=== PATIENT | male | born 1960 | race Caucasian/White ===

== ENCOUNTER 2017-07-15 19:06 | Emergency (ER) | payer MEDICAID ==
--- NOTE | 2017-07-15 19:20 | EDM.PDOC ---
ED HPI GENERAL MEDICAL PROBLEM - General Chief Complaint: Chest Pain Stated Complaint: BP HIGH CHEST PAIN Time Seen by Provider: 07/15/17 19:15 Source of Information: Reports: Patient History Limitations: Reports: No Limitations - History of Present Illness INITIAL COMMENTS - FREE TEXT/NARRATIVE: 57-year-old male who has had intermittent chest pain for months, seems to be worse with activity and today he had an episode of chest pain that lasted 5 hours since is still feeling a slight chest pressure. His blood pressures 180/ 100. No radiation of pain to the jaw or arms. He has never had any kind of cardiac evaluation, he was thinking of setting up a stress test with his primary doctor in the near future. He took a full dose aspirin earlier today. Onset: Unknown/Unsure Location: Reports: Chest Quality: Reports: Pressure Severity: Moderate Chest Pain Score (Numeric/FACES): 3 - Related Data Allergies Allergy/AdvReac Type Severity Reaction Status Date / Time No Known Allergies Allergy Verified 07/15/17 19:15 Home Meds: Home Meds Aspirin 325 mg PO DAILY 07/26/15 [History] Albuterol [Ventolin HFA] 2 puff INH ASDIRECTED 07/13/16 [History] Past Medical History HEENT History: Reports: Impaired Vision Cardiovascular History: Reports: Hypertension Respiratory History: Reports: COPD Other Gastrointestinal History: abd pain for 2 weeks pt guarding L lower abd area Musculoskeletal History: Reports: Back Pain, Chronic - Past Surgical History HEENT Surgical History: Reports: Tonsillectomy GI Surgical History: Reports: Appendectomy Social & Family History - Tobacco Use Smoking Status *Q: Current Every Day Smoker Years of Tobacco use: 40 Packs/Tins Daily: 0.5 - Alcohol Use Days Per Week of Alcohol Use: 3 Number of Drinks Per Day: 3 Total Drinks Per Week: 9 - Recreational Drug Use Recreational Drug Use: No ED ROS GENERAL - Review of Systems Review Of Systems: See Below Constitutional: Denies: Fever, Chills, Malaise HEENT: Reports: No Symptoms Respiratory: Denies: Shortness of Breath, Cough Cardiovascular: Reports: Chest Pain (Pressure sensation central to left chest) GI/Abdominal: Denies: Abdominal Pain, Nausea, Vomiting Skin: Reports: No Symptoms Neurological: Reports: No Symptoms Psychiatric: Reports: No Symptoms ED EXAM, GENERAL - Physical Exam Exam: See Below Exam Limited By: No Limitations General Appearance: Alert, No Apparent Distress Neck: Normal Inspection Respiratory/Chest: No Respiratory Distress, Lungs Clear Cardiovascular: Regular Rate, Rhythm GI/Abdominal: Soft, Non-Tender Extremities: Normal Inspection Neurological: Alert, Oriented Psychiatric: Normal Affect, Normal Mood Skin Exam: Warm, Dry EKG INTERPRETATION Rhythm: NSR QRS: RBBB Course - Vital Signs Last Recorded V/S: Last Vital Signs Temp 96.7 F 07/15/17 19:13 Pulse 84 07/15/17 21:30 Resp 14 07/15/17 21:30 BP 156/100 H 07/15/17 21:30 Pulse Ox 95 07/15/17 21:30 - Orders/Labs/Meds Orders: Active Orders 24 hr Category Date Time Status EKG Documentation Completion [RC] ASDIRECTED Care 07/15/17 19:20 Active EKG 12 Lead [EK] Routine Ther 07/15/17 19:20 Ordered Labs: Laboratory Tests 07/15/17 07/15/17 07/15/17 Range/Units 19:30 19:30 19:30 WBC 10.7 (4.5-11.0) K/uL RBC 5.16 (4.30-5.90) M/uL Hgb 17.2 H (12.0-15.0) g/dL Hct 49.3 (40.0-54.0) % MCV 96 (80-98) fL MCH 33 H (27-31) pg MCHC 35 (32-36) % Plt Count 206 (150-400) K/uL Neut % (Auto) 58 (36-66) % Lymph % (Auto) 26 (24-44) % Gillespie % (Auto) 14 H (2-6) % Eos % (Auto) 1 L (2-4) % Baso % (Auto) 0 (0-1) % Sodium 135 L (140-148) mmol/L Potassium 4.0 (3.6-5.2) mmol/L Chloride 99 L (100-108) mmol/L Carbon Dioxide 25 (21-32) mmol/L Anion Gap 15.0 H (5.0-14.0) mmol/L BUN 7 (7-18) mg/dL Creatinine 0.9 (0.8-1.3) mg/dL Est Cr Clr Drug Dosing 72.88 mL/min Estimated GFR (MDRD) > 60 (>60) Glucose 104 (74-106) mg/dL Calcium 9.1 (8.5-10.1) mg/dL Troponin I < 0.017 (0.000-0.056) ng/mL - Re-Assessments/Exams Free Text/Narrative Re-Assessment/Exam: 07/15/17 21:15 EKG showed a right bundle rae block but no acute ST changes. I do not have a previous EKG for comparison. Patient's symptoms resolved shortly after coming in the emergency room. He was initially hypertensive but normalized over the course of an hour. CBC, BMP and troponin were obtained and were reassuring, troponin was 0. I discussed his symptoms with cardiology to see if there were significant enough symptoms to get him a study without further evaluation but a Cardiolite stress was recommended. This was set up for tomorrow, the patient was discharged symptom-free. I did give him some fresh nitroglycerin to use if pain recurs and told him to return if concerns. Departure - Departure Time of Disposition: 21:57 Disposition: Home, Self-Care 01 Condition: Good Clinical Impression: Stable angina - Discharge Information Instructions: Angina Pectoris, [id number] Referrals: Jason Chamberlain MD [Primary Care Provider] - Forms: ED Department Discharge Care Plan Goals: Use nitroglycerin for chest pain if it recurs, return to the emergency room pain is persistent or worsening. You will have a stress test tomorrow as discussed. - My Orders Last 24 Hours: My Active Orders 07/15/17 19:20 EKG Documentation Completion [RC] ASDIRECTED EKG 12 Lead [EK] Routine - Assessment/Plan Last 24 Hours: My Active Orders 07/15/17 19:20 EKG Documentation Completion [RC] ASDIRECTED EKG 12 Lead [EK] Routine
[2017-07-15 21:50] VITALS: BP 156/100
== END 2017-07-15 21:50 | disposition home or self-care (01) ==
LOC: JP.ED 19:06
DX: I20.8 Other forms of angina pectoris (principal); I10 Essential (primary) hypertension; F17.210 Nicotine dependence, cigarettes, uncomplicated; J44.9 Chronic obstructive pulmonary disease, unspecified; Z79.82 Long term (current) use of aspirin
CPT/HCPCS: 36415; 80048; 84484; 85025; 93005; 99285-25

== ENCOUNTER 2019-04-27 04:44 | Emergency (ER) | payer SELFPAY ==
[2019-04-27 04:56] VITALS: BP 154/97
[2019-04-27] MEDS: Ketorolac 60 MG/2 ML SDV IM ONE (05:15)
--- NOTE | 2019-04-27 05:15 | EDM.PDOC ---
ED HPI GENERAL MEDICAL PROBLEM - General Chief Complaint: ENT Problem Stated Complaint: TOOTHACHE Time Seen by Provider: 04/27/19 05:10 Source of Information: Reports: Patient History Limitations: Reports: No Limitations - History of Present Illness INITIAL COMMENTS - FREE TEXT/NARRATIVE: pt has a painful rt molar--lower. This has been a problem for a couple of days. Onset: Gradual, Other (last 2 days. ) Duration: Hour(s): Location: Reports: Face Associated Symptoms: Reports: No Other Symptoms Treatments [employer] REPRESENTATIVE: Reports: Other Medication(s) Other Treatments [employer]PRESENT[employer]IVE: Tylenol #3 Right Upper Jaw Pain Score (Numeric/FACES): 6 - Related Data Allergies Allergy/AdvReac Type Severity Reaction Status Date / Time No Known Allergies Allergy Verified 07/16/17 11:53 Home Meds: Home Meds Aspirin 325 mg PO DAILY 07/26/15 [History] Albuterol [Ventolin HFA] 2 puff INH ASDIRECTED 07/13/16 [History] Acetaminophen with Codeine [Tylenol with Codeine #3 Tablet] 1 tab PO ASDIRECTED PRN 07/11/18 [History] Past Medical History HEENT History: Reports: Impaired Vision Cardiovascular History: Reports: Hypertension Respiratory History: Reports: COPD Other Gastrointestinal History: abd pain for 2 weeks pt guarding L lower abd area Musculoskeletal History: Reports: Back Pain, Chronic - Past Surgical History HEENT Surgical History: Reports: Tonsillectomy GI Surgical History: Reports: Appendectomy Social & Family History - Tobacco Use Smoking Status *Q: Current Every Day Smoker Years of Tobacco use: 45 Packs/Tins Daily: 2 - Caffeine Use Caffeine Use: Reports: Coffee, Soda Caffeine Use Comment: 3-4 cups of coffee per day, daily soda - Alcohol Use Days Per Week of Alcohol Use: 3 Number of Drinks Per Day: 4 Total Drinks Per Week: 12 - Recreational Drug Use Recreational Drug Use: No ED ROS ENT - Review of Systems Review Of Systems: See Below Constitutional: Reports: No Symptoms HEENT: Reports: Dental Pain Respiratory: Reports: No Symptoms Cardiovascular: Reports: No Symptoms Endocrine: Reports: No Symptoms GI/Abdominal: Reports: No Symptoms : Reports: No Symptoms Musculoskeletal: Reports: No Symptoms ED EXAM, ENT - Physical Exam Exam: See Below Text/Narrative:: rt lower molar is tender and the gum is swollen. Exam Limited By: No Limitations General Appearance: Alert, Anxious, Moderate Distress Ears: Normal TMs Nose: Normal Inspection Mouth/Throat: Dental Pain, Gum Swelling Head: Atraumatic Neck: Lymphadenopathy (R) Respiratory/Chest: No Respiratory Distress Course - Vital Signs Last Recorded V/S: Last Vital Signs Temp 35.5 C 04/27/19 04:54 Pulse 90 04/27/19 04:54 Resp 16 04/27/19 04:54 BP 154/97 H 04/27/19 04:54 Pulse Ox 97 04/27/19 04:54 - Orders/Labs/Meds Orders: Active Orders 24 hr Category Date Time Status Ketorolac [Toradol] Med 04/27/19 05:09 Once 60 mg IM ONETIME ONE - Re-Assessments/Exams Free Text/Narrative Re-Assessment/Exam: 04/27/19 05:12 pt was given torodol 60 mg im. Departure - Departure Time of Disposition: 05:13 Disposition: Home, Self-Care 01 Condition: Fair Clinical Impression: Infected tooth - Discharge Information Referrals: PCP,None [Primary Care Provider] - Care Plan Goals: amoxicillin 500mg tid, tramodol 50 mg q6h prn for pain, dental referal - My Orders Last 24 Hours: My Active Orders 04/27/19 05:09 Ketorolac [Toradol] 60 mg IM ONETIME ONE - Assessment/Plan Last 24 Hours: My Active Orders 04/27/19 05:09 Ketorolac [Toradol] 60 mg IM ONETIME ONE
== END 2019-04-27 05:29 | disposition home or self-care (01) ==
LOC: JP.ED 04:44
DX: K04.7 Periapical abscess without sinus (principal); F17.210 Nicotine dependence, cigarettes, uncomplicated; I10 Essential (primary) hypertension; J44.9 Chronic obstructive pulmonary disease, unspecified; Z79.82 Long term (current) use of aspirin
CPT/HCPCS: 96372; 99282; J1885

== ENCOUNTER 2019-10-20 20:38 | Emergency (ER) | payer SELFPAY ==
[2019-10-20] MEDS ORDERED: Albuterol/Ipratropium 3.0-0.5 MG/3 ML Neb Soln NEB ONE (21:24)
[2019-10-20 21:52] VITALS: BP 163/109; PULSE 97
--- NOTE | 2019-10-20 21:56 | EDM.PDOC ---
ED HPI GENERAL MEDICAL PROBLEM - General Chief Complaint: Respiratory Problem Stated Complaint: SOB Time Seen by Provider: 10/20/19 21:30 Source of Information: Reports: Patient History Limitations: Reports: No Limitations - History of Present Illness INITIAL COMMENTS - FREE TEXT/NARRATIVE: 59-year-old male, heavy smoker and history of reactive airway disease has had a cough, shortness of breath and sore throat for the past 3 days. Tonight he was on his way to work and became so short of breath that he stopped in the emergency room to be checked. No significant fevers or chills, cough is nonproductive. Throat is getting so sore that he can hardly drink cold water. He continues to smoke up to 2 packs a day. He has been using an inhaler that does not seem to be helping. Onset: Gradual Duration: Day(s): (3 to 4 days) Associated Symptoms: Reports: Cough, Shortness of Breath, Other (Sore throat). Denies: Fever/Chills, Loss of Appetite - Related Data Allergies Allergy/AdvReac Type Severity Reaction Status Date / Time No Known Allergies Allergy Verified 10/20/19 21:35 Home Meds: Home Meds Aspirin 325 mg PO DAILY 07/26/15 [History] Albuterol [Ventolin HFA] 2 puff INH ASDIRECTED 07/13/16 [History] Acetaminophen with Codeine [Tylenol with Codeine #3 Tablet] 1 tab PO ASDIRECTED PRN 07/11/18 [History] Past Medical History HEENT History: Reports: Impaired Vision Cardiovascular History: Reports: Hypertension Respiratory History: Reports: COPD Gastrointestinal History: Reports: Other (See Below) Other Gastrointestinal History: abd pain for 2 weeks pt guarding L lower abd area Musculoskeletal History: Reports: Back Pain, Chronic, Other (See Below) Other Musculoskeletal History: Degenerative Disc Disease Hematologic History: Reports: Anticoagulation Therapy Dermatologic History: Reports: Other (See Below) Other Dermatologic History: dry skin - Infectious Disease History Infectious Disease History: Reports: Chicken Pox, Shingles - Past Surgical History HEENT Surgical History: Reports: Tonsillectomy GI Surgical History: Reports: Appendectomy Social & Family History - Tobacco Use Smoking Status *Q: Current Every Day Smoker Years of Tobacco use: 40 Packs/Tins Daily: 1.5 - Caffeine Use Caffeine Use: Reports: Coffee, Soda Caffeine Use Comment: 3-4 cups of coffee per day, daily soda - Recreational Drug Use Recreational Drug Use: No ED ROS GENERAL - Review of Systems Review Of Systems: See Below Constitutional: Reports: Malaise. Denies: Fever HEENT: Reports: Throat Pain Respiratory: Reports: Shortness of Breath, Wheezing, Cough. Denies: Sputum Cardiovascular: Denies: Chest Pain GI/Abdominal: Denies: Vomiting Skin: Reports: No Symptoms Neurological: Denies: Headache Psychiatric: Reports: No Symptoms ED EXAM, GENERAL - Physical Exam Exam: See Below Exam Limited By: No Limitations General Appearance: Alert, No Apparent Distress (No distress but looks uncomfortable) Throat/Mouth: Other (Significant diffuse pharyngeal erythema, no exudate or lesions) Head: Atraumatic Neck: No: Lymphadenopathy (R), Lymphadenopathy (L) Respiratory/Chest: No Respiratory Distress, Wheezing (Diffuse inspiratory and expiratory wheezes) Cardiovascular: Regular Rate, Rhythm Neurological: Alert, Oriented Psychiatric: Normal Affect, Normal Mood Skin Exam: Warm, Dry Course - Vital Signs Last Recorded V/S: Last Vital Signs Temp 97.5 F 10/20/19 21:13 Pulse 97 10/20/19 21:52 Resp 21 H 10/20/19 21:52 BP 163/109 H 10/20/19 21:52 Pulse Ox 100 10/20/19 21:52 - Orders/Labs/Meds Orders: Active Orders 24 hr Category Date Time Status RT Aerosol Therapy [RC] ASDIRECTED Care 10/20/19 21:24 Active CULTURE STREP A CONFIRMATION [] Routine Lab 10/20/19 21:23 Results STREP SCRN A RAPID W CULT CONF [] Routine Lab 10/20/19 21:23 Results Meds: Medications Discontinued Medications Generic Name Dose Route Start Last Admin Trade Name Freq PRN Reason Stop Dose Admin Albuterol/Ipratropium 3 ml 10/20/19 21:24 10/20/19 21:34 Duoneb 3.0-0.5 Mg/3 Ml NEB 10/20/19 21:25 3 ml ONETIME ONE Administration - Re-Assessments/Exams Free Text/Narrative Re-Assessment/Exam: 10/20/19 22:15 Patient was given a DuoNeb with marked subjective and objective improvement. His wheezing was almost gone. I then looked at his inhaler to see if it was empty, it is actually an off brand he bought in [place] which may not be very effective. He was discharged on 60 mg of prednisone daily for 5 days and a new albuterol inhaler, encouraged to stop smoking. A rapid strep was obtained which was negative, influenza antigens also were negative. He will return if not continuing to improve despite treatment. Departure - Departure Time of Disposition: 22:06 Disposition: Home, Self-Care 01 Clinical Impression: Acute viral bronchitis Reactive airway disease Qualifiers: Asthma severity: moderate Asthma persistence: persistent Asthma complication type: uncomplicated Qualified Code(s): J45.40 - Moderate persistent asthma, uncomplicated - Discharge Information Instructions: Viral Respiratory Infection, [id number] Referrals: Jason Chamberlain MD [Primary Care Provider] - Forms: ED Department Discharge Care Plan Goals: Take 6 pills of prednisone with food daily for 5 consecutive days as discussed. Use your inhaler every 2-3 hours if needed, and return anytime if worsening despite treatment. Decrease smoking if possible. Sepsis Event Note - Evaluation Sepsis Screening Result: No Definite Risk - Focused Exam Vital Signs: Vital Signs Temp Pulse Resp BP Pulse Ox 10/20/19 21:52 97 21 H 163/109 H 100 10/20/19 21:13 97.5 F 85 17 192/102 H 96 10/20/19 21:04 97.5 F 85 17 192/102 H 96 Date Exam was Performed: 10/20/19 Time Exam was Performed: 22:12 - My Orders Last 24 Hours: My Active Orders 10/20/19 21:23 CULTURE STREP A CONFIRMATION [RM] Routine STREP SCRN A RAPID W CULT CONF [RM] Routine 10/20/19 21:24 RT Aerosol Therapy [RC] ASDIRECTED - Assessment/Plan Last 24 Hours: My Active Orders 10/20/19 21:23 CULTURE STREP A CONFIRMATION [RM] Routine STREP SCRN A RAPID W CULT CONF [RM] Routine 10/20/19 21:24 RT Aerosol Therapy [RC] ASDIRECTED
== END 2019-10-20 22:06 | disposition home or self-care (01) ==
LOC: JP.ED 20:38
DX: J45.40 Moderate persistent asthma, uncomplicated (principal); J20.8 Acute bronchitis due to other specified organisms; B97.89 Other viral agents as the cause of diseases classified elsewhere; I10 Essential (primary) hypertension; F17.210 Nicotine dependence, cigarettes, uncomplicated; Z79.01 Long term (current) use of anticoagulants; Z79.82 Long term (current) use of aspirin
CPT/HCPCS: 87081; 87804; 87804-59; 87880-QW; 94640; 99284; 99285-25; J7620-GY

== ENCOUNTER 2020-08-25 21:46 | Emergency (ER) | payer SELFPAY ==
[2020-08-25 21:59] VITALS: BP 170/82; PULSE 85
[2020-08-25] MEDS ORDERED: Sodium Chloride 0.9% 10 ML Syringe FLUSH PRN (22:22)
[2020-08-25] MEDS ORDERED: HYDROmorphone 0.5 MG/0.5 ML Syringe IVPUSH ONE (22:22)
--- NOTE | 2020-08-25 22:31 | EDM.PDOC ---
ED HPI GENERAL MEDICAL PROBLEM - General Chief Complaint: Back Pain or Injury Stated Complaint: MUSCLE CRAMPS IN BACK AND SIDE Time Seen by Provider: 08/25/20 22:15 Source of Information: Reports: Patient, Old Records, RN History Limitations: Reports: No Limitations - History of Present Illness INITIAL COMMENTS - FREE TEXT/NARRATIVE: 60 yo male here with R sided abdominal pain that began about 4 1/2 hrs ago. Pain is constant. Pain is worse with coughing. No fever or nausea. Has a hx of appendectomy, but not cholecystectomy. No self tx. No injury. No urinary sx's such as dysuria, frequency or retention. 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) - Related Data Allergies Allergy/AdvReac Type Severity Reaction Status Date / Time No Known Allergies Allergy Verified 08/25/20 22:00 Home Meds: Home Meds Aspirin 325 mg PO DAILY 07/26/15 [History] Albuterol [Ventolin HFA] 2 puff INH ASDIRECTED 07/13/16 [History] Acetaminophen with Codeine [Tylenol with Codeine #3 Tablet] 1 tab PO ASDIRECTED PRN 07/11/18 [History] Tamsulosin [Tamsulosin 24 Hr] 0.4 mg PO BEDTIME #30 cap.er 08/26/20 [Rx] Past Medical History HEENT History: Reports: Impaired Vision Cardiovascular History: Reports: Hypertension Respiratory History: Reports: COPD, SOB Gastrointestinal History: Reports: Chronic Constipation Other Gastrointestinal History: abd pain for 2 weeks pt guarding L lower abd area Genitourinary History: Reports: Retention, Urinary Musculoskeletal History: Reports: Back Pain, Chronic, Other (See Below) Other Musculoskeletal History: Degenerative Disc Disease Hematologic History: Reports: Anticoagulation Therapy Dermatologic History: Reports: Other (See Below) Other Dermatologic History: dry skin - Infectious Disease History Infectious Disease History: Reports: Chicken Pox, Shingles - Past Surgical History Head Surgeries/Procedures: Reports: None HEENT Surgical History: Reports: Tonsillectomy Cardiovascular Surgical History: Reports: None Respiratory Surgical History: Reports: None GI Surgical History: Reports: Appendectomy Male Surgical History: Reports: None Musculoskeletal Surgical History: Reports: None Dermatological Surgical History: Reports: None Social & Family History - Tobacco Use Tobacco Use Status *Q: Current Every Day Tobacco User Years of Tobacco use: 45 Packs/Tins Daily: 2 Used Tobacco, but Quit: No Second Hand Smoke Exposure: Yes - Caffeine Use Caffeine Use: Reports: Coffee, Soda Caffeine Use Comment: 3-4 cups of coffee per day, daily soda - Alcohol Use Days Per Week of Alcohol Use: 3 Number of Drinks Per Day: 2 Total Drinks Per Week: 6 - Recreational Drug Use Recreational Drug Use: No ED ROS GENERAL - Review of Systems Review Of Systems: See Below Constitutional: Reports: No Symptoms HEENT: Reports: No Symptoms Respiratory: Reports: No Symptoms Cardiovascular: Reports: No Symptoms GI/Abdominal: Reports: Abdominal Pain. Denies: Black Stool, Bloody Stool, Constipation, Diarrhea, Distension, Flatus, Hematemesis, Hematochezia, Nausea, Vomiting : Reports: No Symptoms Musculoskeletal: Reports: No Symptoms Skin: Reports: No Symptoms Neurological: Reports: No Symptoms Psychiatric: Reports: No Symptoms ED EXAM, GI/ABD - Physical Exam Exam: See Below Exam Limited By: No Limitations General Appearance: Alert, WD/WN, No Apparent Distress Eyes: Bilateral: Normal Appearance Ears: Normal External Exam, Normal Canal, Hearing Grossly Normal Nose: Normal Inspection, No Blood Throat/Mouth: Normal Inspection, Normal Lips, Normal Oropharynx, Normal Voice, No Airway Compromise Head: Atraumatic, Normocephalic Neck: Normal Inspection Respiratory/Chest: No Respiratory Distress, Lungs Clear, Normal Breath Sounds, No Accessory Muscle Use Cardiovascular: Regular Rate, Rhythm, No Edema GI/Abdominal Exam: Normal Bowel Sounds, Soft, Guarding, Tender (R mid abdomen). No: Distended, Rigid, Rebound Back Exam: Normal Inspection. No: CVA Tenderness (R), CVA Tenderness (L) Extremities: Normal Inspection, Normal Range of Motion, Non-Tender, No Pedal Edema Neurological: Alert, Oriented, CN II-XII Intact, Normal Cognition, No Motor/Sensory Deficits Psychiatric: Normal Affect, Normal Mood Skin Exam: Warm, Dry, Intact, Normal Color, No Rash Course - Vital Signs Text/Narrative:: Bladder scan-post void residual 150 ml Last Recorded V/S: Last Vital Signs Temp 36.6 C 08/25/20 21:59 Pulse 85 08/25/20 21:59 Resp 16 08/25/20 21:59 BP 170/82 H 08/25/20 21:59 Pulse Ox 97 08/25/20 21:59 - Orders/Labs/Meds Orders: Active Orders 24 hr Category Date Time Status Bladder Scan [RC] ASDIRECTED Care 08/26/20 00:37 Active Abdomen 2V AP Flat Upright [CR] Stat Exams 08/25/20 22:53 Taken Sodium Chloride 0.9% [Normal Saline] 75 ml Med 08/25/20 23:30 Active IV ASDIRECTED Sodium Chloride 0.9% [Saline Flush] Med 08/25/20 22:22 Active 10 ml FLUSH ASDIRECTED PRN Saline Lock Insert [OM.PC] Routine Oth 08/25/20 22:22 Ordered Medication Orders Sodium Chloride (Normal Saline) 75 mls @ 3 mls/sec IV ASDIRECTED CHRISTIANO Last Admin: 08/25/20 23:42 Dose: 3 mls/sec Documented by: TOYA Sodium Chloride (Saline Flush) 10 ml FLUSH ASDIRECTED PRN PRN Reason: Keep Vein Open Last Admin: 08/25/20 22:37 Dose: 10 ml Documented by: ALEX Labs: Laboratory Tests 08/25/20 08/25/20 08/25/20 Range/Units 22:33 22:33 22:39 WBC 10.9 (4.5-11.0) K/uL RBC 5.11 (4.30-5.90) M/uL Hgb 15.6 H (12.0-15.0) g/dL Hct 47.7 (40.0-54.0) % MCV 93 (80-98) fL MCH 31 (27-31) pg MCHC 33 (32-36) % Plt Count 276 (150-400) K/uL Sodium 131 L (140-148) mmol/L Potassium 4.5 (3.6-5.2) mmol/L Chloride 97 L (100-108) mmol/L Carbon Dioxide 26 (21-32) mmol/L Anion Gap 12.5 (5.0-14.0) mmol/L BUN 6 L (7-18) mg/dL Creatinine 1.0 (0.8-1.3) mg/dL Est Cr Clr Drug Dosing 68.33 mL/min Estimated GFR (MDRD) > 60 (>60) Glucose 92 (74-106) mg/dL Calcium 9.0 (8.5-10.1) mg/dL Total Bilirubin 0.3 (0.2-1.0) mg/dL AST 17 (15-37) U/L ALT 25 (12-78) U/L Alkaline Phosphatase 100 (46-116) U/L C-Reactive Protein 2.24 H (0.0-0.3) mg/dL Total Protein 6.7 (6.4-8.2) g/dL Albumin 3.4 (3.4-5.0) g/dL Globulin 3.3 (2.3-3.5) g/dL Albumin/Globulin Ratio 1.0 L (1.2-2.2) Urine Color Yellow (YELLOW) Urine Appearance Clear (CLEAR) Urine pH 6.0 (5.0-8.0) Ur Specific [place] 1.010 (1.008-1.030) Urine Protein Negative (NEGATIVE) mg/dL Urine Glucose (UA) Negative (NEGATIVE) mg/dL Urine Ketones Negative (NEGATIVE) mg/dL Urine Occult Blood Negative (NEGATIVE) Urine Nitrite Negative (NEGATIVE) Urine Bilirubin Negative (NEGATIVE) Urine Urobilinogen 0.2 (0.2-1.0) EU/dL Ur Leukocyte Esterase Negative (NEGATIVE) Urine RBC Not seen (0-5) Urine WBC Not seen (0-5) Ur Epithelial Cells Rare Amorphous Sediment Rare Urine Bacteria Not seen Urine Mucus Not seen 08/26/20 Range/Units 00:46 WBC (4.5-11.0) K/uL RBC (4.30-5.90) M/uL Hgb (12.0-15.0) g/dL Hct (40.0-54.0) % MCV (80-98) fL MCH (27-31) pg MCHC (32-36) % Plt Count (150-400) K/uL Sodium (140-148) mmol/L Potassium (3.6-5.2) mmol/L Chloride (100-108) mmol/L Carbon Dioxide (21-32) mmol/L Anion Gap (5.0-14.0) mmol/L BUN (7-18) mg/dL Creatinine (0.8-1.3) mg/dL Est Cr Clr Drug Dosing mL/min Estimated GFR (MDRD) (>60) Glucose (74-106) mg/dL Calcium (8.5-10.1) mg/dL Total Bilirubin (0.2-1.0) mg/dL AST (15-37) U/L ALT (12-78) U/L Alkaline Phosphatase (46-116) U/L C-Reactive Protein (0.0-0.3) mg/dL Total Protein (6.4-8.2) g/dL Albumin (3.4-5.0) g/dL Globulin (2.3-3.5) g/dL Albumin/Globulin Ratio (1.2-2.2) Urine Color Yellow (YELLOW) Urine Appearance Clear (CLEAR) Urine pH 5.5 (5.0-8.0) Ur Specific [place] <= 1.005 L (1.008-1.030) Urine Protein Negative (NEGATIVE) mg/dL Urine Glucose (UA) Negative (NEGATIVE) mg/dL Urine Ketones Negative (NEGATIVE) mg/dL Urine Occult Blood Negative (NEGATIVE) Urine Nitrite Negative (NEGATIVE) Urine Bilirubin Negative (NEGATIVE) Urine Urobilinogen 0.2 (0.2-1.0) EU/dL Ur Leukocyte Esterase Negative (NEGATIVE) Urine RBC Not seen (0-5) Urine WBC Not seen (0-5) Ur Epithelial Cells Rare Amorphous Sediment Rare Urine Bacteria Not seen Urine Mucus Not seen Meds: Medications Generic Name Dose Route Start Last Admin Trade Name Freq PRN Reason Stop Dose Admin Sodium Chloride 75 mls @ 3 mls/sec 08/25/20 23:30 08/25/20 23:42 Normal Saline IV 3 mls/sec ASDIRECTED CHRISTIANO Administration Sodium Chloride 10 ml 08/25/20 22:22 08/25/20 22:37 Saline Flush FLUSH 10 ml ASDIRECTED PRN Administration Keep Vein Open Discontinued Medications Generic Name Dose Route Start Last Admin Trade Name Freq PRN Reason Stop Dose Admin Hydromorphone HCl 0.5 mg 08/25/20 22:22 08/25/20 22:37 Dilaudid IVPUSH 08/25/20 22:23 0.5 mg ONETIME ONE Administration Iopamidol 100 ml 08/25/20 23:29 08/25/20 23:44 Isovue-300 (61%) IV 08/25/20 23:30 100 ml ONETIME ONE Administration Ketorolac Tromethamine 30 mg 08/26/20 00:31 08/26/20 00:35 Toradol IVPUSH 08/26/20 00:32 30 mg ONETIME ONE Administration Sodium Chloride 10 ml 08/25/20 23:29 08/25/20 23:42 Saline Flush FLUSH 08/25/20 23:30 10 ml ONETIME ONE Administration Tamsulosin HCl 0.4 mg 08/26/20 00:52 Flomax PO 08/26/20 00:53 ONETIME ONE - Radiology Interpretation Free Text/Narrative:: CT abd/pelvis with IV contrast- IMPRESSION: 1. No acute abnormality identified. No cause for the patient`s symptoms is demonstrated. 2. Sigmoid colon diverticulosis without evidence of diverticulitis. 3. Mild prostatomegaly and mild diffuse wall thickening of the urinary bladder. 4. Nonacute additional findings as detailed above. WILEY LUNA MD Flat/upright abdominal X-ray-mild ileus CT Results Date: 08/25/20 Departure - Departure Time of Disposition: 01:01 Disposition: Home, Self-Care 01 Condition: Fair Clinical Impression: Abdominal pain Qualifiers: Abdominal location: right upper quadrant Qualified Code(s): R10.11 - Right upper quadrant pain - Discharge Information *PRESCRIPTION DRUG MONITORING PROGRAM REVIEWED*: No *COPY OF PRESCRIPTION DRUG MONITORING REPORT IN PATIENT PIEDAD: No Prescriptions: Tamsulosin [Tamsulosin 24 Hr] 0.4 mg PO BEDTIME #30 cap.er Referrals: Wiley Chamberlain MD [Primary Care Provider] - Forms: ED Department Discharge Additional Instructions: Take Flomax at bedtime to help you with urination(Rx to [facility]). Take acetaminophen up to 1000 mg every 6 hrs for pain relief, and ibuprofen 600 mg every 6 hrs as needed for added pain relief. F/U if your symptoms persist for a gallbladder ultrasound and/or HIDA scan. Return if worse. Sepsis Event Note (ED) - Evaluation Sepsis Screening Result: No Definite Risk - Focused Exam Vital Signs: Vital Signs Temp Pulse Resp BP Pulse Ox 08/25/20 21:59 36.6 C 85 16 170/82 H 97 08/25/20 21:58 36.6 C 85 16 170/82 H 97 - My Orders Last 24 Hours: My Active Orders 08/25/20 22:22 Sodium Chloride 0.9% [Saline Flush] 10 ml FLUSH ASDIRECTED PRN Saline Lock Insert [OM.PC] Routine 08/25/20 22:53 Abdomen 2V AP Flat Upright [CR] Stat 08/25/20 23:30 Sodium Chloride 0.9% [Normal Saline] 75 ml IV ASDIRECTED 08/26/20 00:37 Bladder Scan [RC] ASDIRECTED - Assessment/Plan Last 24 Hours: My Active Orders 08/25/20 22:22 Sodium Chloride 0.9% [Saline Flush] 10 ml FLUSH ASDIRECTED PRN Saline Lock Insert [OM.PC] Routine 08/25/20 22:53 Abdomen 2V AP Flat Upright [CR] Stat 08/25/20 23:30 Sodium Chloride 0.9% [Normal Saline] 75 ml IV ASDIRECTED 08/26/20 00:37 Bladder Scan [RC] ASDIRECTED
[2020-08-25] MEDS ORDERED: Iopamidol 612 MG/ML 500 ML Multipack Bottle IV ONE (23:29)
[2020-08-25] MEDS ORDERED: Sodium Chloride 0.9% 10 ML Syringe FLUSH ONE (23:29)
[2020-08-25] MEDS ORDERED: Sodium Chloride 0.9% 75 ML IV SCH (23:30)
--- NOTE | 2020-08-26 00:15 | CRLCT ---
INDICATION: right sided abdominal pain CT ABDOMEN AND PELVIS WITH CONTRAST TECHNIQUE: Multidetector CT imaging was performed through the abdomen and pelvis following intravenous contrast administration using 100 mL Isovue-300. Coronal and sagittal reconstructions were generated. COMPARISON: None. FINDINGS: Lower chest: Minimal bibasilar lung atelectasis or scarring. Liver: Within normal limits. Gallbladder and bile ducts: No gallbladder wall thickening or calcified gallstones. No biliary dilation identified. Pancreas: Unremarkable. Spleen: Normal. Adrenals: No nodules or masses. Kidneys, ureters, and urinary bladder: Small bilateral nonobstructing intrarenal stones and/or vascular calcifications. No renal masses or hydronephrosis. Mild diffuse wall thickening of the urinary bladder. Gastrointestinal tract: Incidental duodenal diverticulum. Normal caliber small bowel without wall thickening or obstruction. Appendix not identified. Areas of wall prominence of the colon are felt due to nondistention. There are several sigmoid colon diverticula, without evidence of diverticulitis. Vascular structures: Moderate to severe aortoiliac atherosclerotic changes. Peritoneum: No free air, abscess, or significant free fluid. Lymph nodes: No pathologically enlarged nodes identified. Reproductive organs: Mild prostatomegaly. Bones: Mild multilevel spondylosis. IMPRESSION: 1. No acute abnormality identified. No cause for the patient`s symptoms is demonstrated. 2. Sigmoid colon diverticulosis without evidence of diverticulitis. 3. Mild prostatomegaly and mild diffuse wall thickening of the urinary bladder. 4. Nonacute additional findings as detailed above. WILEY LUNA MD [employer] [employer] Dictated by Neno Luna MD @ 08/26/2020 12:14:53 AM Dictated by: Neno Luna MD @ 08/26/2020 00:15:04 (Electronically Signed)
[2020-08-26] MEDS ORDERED: Ketorolac 30 MG/ML SDV IVPUSH ONE (00:31)
[2020-08-26] MEDS ORDERED: Tamsulosin 0.4 MG Cap.ER PO ONE (00:52)
--- NOTE | 2020-08-27 11:59 | CR ---
Abdomen 2V AP Flat Upright CLINICAL HISTORY: Right-sided abdominal pain FINDINGS: No free air is identified. Intestinal gas pattern is nonacute. No definite urinary stones are seen IMPRESSION: Nonacute intestinal gas pattern
== END 2020-08-26 01:11 | disposition home or self-care (01) ==
LOC: JP.ED 21:46
DX: R10.11 Right upper quadrant pain (principal); I10 Essential (primary) hypertension; J44.9 Chronic obstructive pulmonary disease, unspecified; F17.210 Nicotine dependence, cigarettes, uncomplicated; Z79.82 Long term (current) use of aspirin; Z79.01 Long term (current) use of anticoagulants; Z90.49 Acquired absence of other specified parts of digestive tract
CPT/HCPCS: 36415; 74019; 74177; 80053; 81001; 85027; 86140; 96374; 96375; 99284; A9270; J1170; J1885; Q9967

== ENCOUNTER 2020-09-24 17:50 | Emergency (ER) | payer OTHER ==
[2020-09-24 17:54] VITALS: BP 186/93; PULSE 91
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
== END 2020-09-24 18:51 | disposition home or self-care (01) ==
LOC: JP.ED 17:50
DX: S40.012A Contusion of left shoulder, initial encounter (principal); I10 Essential (primary) hypertension; J44.9 Chronic obstructive pulmonary disease, unspecified; Z72.0 Tobacco use; Z79.01 Long term (current) use of anticoagulants; Z79.82 Long term (current) use of aspirin; Z79.899 Other long term (current) drug therapy; V89.2XXA Person injured in unspecified motor-vehicle accident, traffic, initial encounter
CPT/HCPCS: 99282; 99284

== ENCOUNTER 2021-01-09 18:40 | Emergency (ER) | payer SELFPAY ==
[2021-01-09] MEDS ORDERED: Sodium Chloride 0.9% 10 ML Syringe FLUSH PRN (19:12)
[2021-01-09] MEDS ORDERED: Sodium Chloride 0.9% 10 ML Syringe FLUSH ONE (19:39)
[2021-01-09] MEDS ORDERED: Iopamidol 612 MG/ML 100 ML Bottle IV SCH (19:45)
[2021-01-09] MEDS ORDERED: Sodium Chloride 0.9% 100 ML IV SCH (19:45)
--- NOTE | 2021-01-09 20:28 | CRLCT ---
INDICATION: Pancreatitis TECHNIQUE: CT Abdomen and pelvis with i.v. contrast. Coronal and sagittal reformats were obtained. CONTRAST: 100 mL Isovue 300 COMPARISON: 08/25/2020 FINDINGS: Lower chest: Unremarkable. Liver: Small ill-defined hypodensity is present in the left lobe of the liver, abutting the fissure for the ligamentum teres, which is most likely due to focal fatty infiltration or due to third inflow phenomenon. Spleen: Unremarkable. Pancreas: Unremarkable. Gallbladder: Unremarkable. Kidney: There are several scattered punctate densities in the kidneys bilaterally which may be due to early contrast excretion, vascular calcifications, or tiny renal stones. Adrenal: Unremarkable. Bowel: Moderate sigmoid diverticulosis is present with no evidence of diverticulitis. The appendix cannot be identified but there are no inflammatory changes noted in the right lower quadrant. There is a duodenal diverticulum present with an air-fluid level, measuring 2.8 cm. Moderate to severe wall thickening of the gastric antrum and 2nd portion of the duodenum are noted. Vascular: Moderate diffuse atherosclerotic calcifications of the abdominal aorta and its tributaries are present. A large calcific plaque is present and causes severe narrowing of the left common iliac artery. Mild to moderate stenosis of the right common iliac artery from calcific plaque is noted without change. Lymph: Unremarkable. Peritoneum: Unremarkable. No pneumoperitoneum is seen. No significant ascites is noted. Pelvis: Severe anterior bladder wall thickening is noted. Soft tissue: Unremarkable. Bone: Unremarkable for age. IMPRESSIONS: 1. Moderate to severe wall thickening of the gastric antrum and 2nd portion of the duodenum are noted. Findings may be due to peptic ulcer disease and/or duodenitis. Assessment with endoscopy is recommended. 2. Severe anterior bladder wall thickening is noted. Further evaluation with cystoscopy is recommended. 3. The pancreas is unremarkable in appearance by CT. 4. A large calcific plaque is present and causes severe narrowing of the left common iliac artery. The appearance is similar to prior examination. Dictated by José Manuel Epstein MD @ 01/09/2021 8:27:13 PM Please note that all CT scans at this facility use dose modulation, iterative reconstruction, and/or weight-based dosing when appropriate to reduce radiation dose to as low as reasonably achievable. Dictated by: José Manuel Epstein MD @ 01/09/2021 20:27:27 (Electronically Signed)
--- NOTE | 2021-01-09 20:33 | EDM.PDOC ---
ED HPI GENERAL MEDICAL PROBLEM - General Chief Complaint: Abdominal Pain Stated Complaint: BACK PAIN AND WHOLE ABD PAIN Time Seen by Provider: 01/09/21 19:12 Source of Information: Reports: Patient, Provider ([facility]--called before sending patient to the ER for further evaluation) History Limitations: Reports: No Limitations - History of Present Illness INITIAL COMMENTS - FREE TEXT/NARRATIVE: Patient presents to the ER tonight due to ongoing intermittent abdominal pain/stomach pain that he reports worsens with food/etoh. He states mid abdominal area, did stop drinking a couple of days then tried to have another beer but about 15-20 minutes after drinking felt bad again, has not drank now in 2-3 days. He states he drinks 2-3 beers daily. He denies any other associated symptoms such as N/V, F/C. Received his COVID vaccine (J&J one time dose) in October, denies having had COVID infection. He states he has had similar episodes of abdominal pain in the past. When ask about h/o pancreatits he states it sounds familiar PMH/Meds--reviewed in EMR NKDA Tob--yes, 1ppd EtOH--yes, 2-3 beers daily Drugs--denies Onset Date: 12/17/20 Right Upper Abdominal Pain Score (Numeric/FACES): 6 - Related Data Allergies Allergy/AdvReac Type Severity Reaction Status Date / Time No Known Allergies Allergy Verified 01/09/21 19:22 Home Meds: Home Meds Aspirin 325 mg PO DAILY 07/26/15 [History] Albuterol [Ventolin HFA] 2 puff INH ASDIRECTED 07/13/16 [History] Acetaminophen with Codeine [Tylenol with Codeine #3 Tablet] 1 tab PO ASDIRECTED PRN 07/11/18 [History] Past Medical History HEENT History: Reports: Impaired Vision Cardiovascular History: Reports: Hypertension Respiratory History: Reports: COPD, SOB Gastrointestinal History: Reports: Chronic Constipation Other Gastrointestinal History: abd pain for 2 weeks pt guarding L lower abd area Genitourinary History: Reports: Retention, Urinary Musculoskeletal History: Reports: Back Pain, Chronic, Other (See Below) Other Musculoskeletal History: Degenerative Disc Disease Hematologic History: Reports: Anticoagulation Therapy Dermatologic History: Reports: Other (See Below) Other Dermatologic History: dry skin - Infectious Disease History Infectious Disease History: Reports: Chicken Pox, Shingles - Past Surgical History HEENT Surgical History: Reports: Tonsillectomy GI Surgical History: Reports: Appendectomy Dermatological Surgical History: Reports: None Social & Family History - Tobacco Use Tobacco Use Status *Q: Heavy Tobacco User Years of Tobacco use: 45 Packs/Tins Daily: 1.5 - Caffeine Use Caffeine Use: Reports: Coffee, Soda Caffeine Use Comment: 3-4 cups of coffee per day, daily soda - Alcohol Use Days Per Week of Alcohol Use: 7 Number of Drinks Per Day: 2 Total Drinks Per Week: 14 - Recreational Drug Use Recreational Drug Use: No ED ROS GENERAL - Review of Systems Review Of Systems: See Below Constitutional: Reports: No Symptoms. Denies: Fever, Chills, Malaise, Weakness, Fatigue, Decreased Appetite HEENT: Reports: No Symptoms Respiratory: Reports: No Symptoms Cardiovascular: Reports: No Symptoms Endocrine: Reports: No Symptoms GI/Abdominal: Reports: Abdominal Pain. Denies: Diarrhea, Decreased Appetite (reports eating his normal diet except unable to tolerate beer/etoh), Nausea, Vomiting : Reports: No Symptoms Musculoskeletal: Reports: No Symptoms Skin: Reports: No Symptoms Neurological: Reports: No Symptoms Psychiatric: Reports: No Symptoms Hematologic/Lymphatic: Reports: No Symptoms Immunologic: Reports: No Symptoms ED EXAM, GI/ABD - Physical Exam Exam: See Below Exam Limited By: No Limitations General Appearance: Alert, WD/WN, No Apparent Distress Eyes: Bilateral: Normal Appearance, EOMI Ears: Normal External Exam Nose: Normal Inspection Throat/Mouth: Normal Inspection, Normal Oropharynx, Normal Voice, No Airway Compromise Head: Atraumatic, Normocephalic Neck: Normal Inspection, Supple, Non-Tender, Full Range of Motion. No: Lymphadenopathy (R), Lymphadenopathy (L) Respiratory/Chest: No Respiratory Distress, Wheezing (bilateral end expiratory wheeze, greater on left than right (c/w active smoker history)) Cardiovascular: Normal Peripheral Pulses, Regular Rate, Rhythm, No Edema, No Murmur GI/Abdominal Exam: Normal Bowel Sounds, Soft, Tender (mid abdominal tenderness/umbilicus area to palpatory exam). No: Guarding, Rigid, Rebound (Male) Exam: Deferred Rectal (Males) Exam: Deferred Back Exam: Normal Inspection Extremities: Normal Inspection, Normal Range of Motion, No Pedal Edema, Normal Capillary Refill Neurological: Alert, Oriented, Normal Cognition, Normal Gait, No Motor/Sensory Deficits Psychiatric: Normal Affect, Normal Mood Skin Exam: Warm, Dry, Intact, Normal Color Lymphatic: No Adenopathy Course - Vital Signs Text/Narrative:: 2041--reviewed today's ER findings and recommendations in care. will start protonix at this time with IV dose in the ER followed by oral. needs multiple referrals in care--recommend PCM follow up to obtain these referrals to include GI for endoscsopy, Urology for cystoscopy, and Vasucular for iliac artery stenosis. patient verbalized understanding of plan & need to follow up with PCM in the next 5-7 days for ongoing chronic medical care needs and referrals Last Recorded V/S: Last Vital Signs Temp 96.6 F L 01/09/21 19:34 Pulse 76 01/09/21 19:34 Resp 18 01/09/21 19:34 BP 151/79 H 01/09/21 19:34 Pulse Ox 98 01/09/21 19:34 - Orders/Labs/Meds Orders: Active Orders 24 hr Category Date Time Status Peripheral IV Care [RC] . DIRECTED Care 01/09/21 19:12 Active Abdomen Pelvis w Cont [CT] Stat Exams 01/09/21 19:13 Taken Iopamidol [Isovue-300 (61%)] Med 01/09/21 19:45 Active 100 ml IV . DIRECTED Sodium Chloride 0.9% [Normal Saline] 100 ml Med 01/09/21 19:45 Active IV ASDIRECTED Sodium Chloride 0.9% [Saline Flush] Med 01/09/21 19:12 Active 10 ml FLUSH ASDIRECTED PRN Peripheral IV Insertion Adult [OM.PC] Routine Oth 01/09/21 19:12 Ordered Medication Orders Sodium Chloride (Normal Saline) 100 mls @ 3.5 mls/sec IV ASDIRECTED CHRISTIANO Iopamidol (Iopamidol 612 Mg/Ml 100 Ml Bottle) 100 ml IV . DIRECTED CHRISTIANO Sodium Chloride (Sodium Chloride 0.9% 10 Ml Syringe) 10 ml FLUSH ASDIRECTED PRN PRN Reason: Keep Vein Open Last Admin: 01/09/21 19:31 Dose: 10 ml Documented by: JOAO Labs: Labs completed in the clinic/urgent care--as per report sent UA--WNL, no acute concerns CBC--WBC-11.7, H/H-11.8/37.5, Plate-363 CMP--WNL except amylase-80, verbal report of lipase 260 Meds: Medications Generic Name Dose Route Start Last Admin Trade Name Freq PRN Reason Stop Dose Admin Sodium Chloride 100 mls @ 3.5 mls/sec 01/09/21 19:45 Normal Saline IV ASDIRECTED CHRISTIANO Iopamidol 100 ml 01/09/21 19:45 Iopamidol 612 Mg/Ml 100 Ml Bottle IV . DIRECTED CHRISTIANO Sodium Chloride 10 ml 01/09/21 19:12 01/09/21 19:31 Sodium Chloride 0.9% 10 Ml Syringe FLUSH 10 ml ASDIRECTED PRN Administration Keep Vein Open Discontinued Medications Generic Name Dose Route Start Last Admin Trade Name Freq PRN Reason Stop Dose Admin Sodium Chloride 10 ml 01/09/21 19:39 Sodium Chloride 0.9% 10 Ml Syringe FLUSH 01/09/21 19:40 ONETIME ONE - Radiology Interpretation Free Text/Narrative:: CT abd/pelvis (with contrast)--faxed report 1. Moderate to severe wall thickening of gastric antrum and 2nd portion of the duodenum are noted. findings may be due to peptic ulcer disease and/or duodenitis. assessment with endoscopy is recommended 2. Severe anterior bladder wall thickening is noted. further evaluation with cystoscopy is recommendeed 3. the pancrease is unremarkable in appearance by CT 4. a large calcific plaque is present and the causes severe narrowing of the left common iliac artery. the appearance is as per previous exam CT Results Date: 01/09/21 CT Results Time: 20:35 Departure - Departure Time of Disposition: 20:45 Disposition: Home, Self-Care 01 Clinical Impression: Peptic ulcer disease, Gastritis, Bladder wall thickening, Peripheral artery disease, Hypertension - Discharge Information *PRESCRIPTION DRUG MONITORING PROGRAM REVIEWED*: Not Applicable *COPY OF PRESCRIPTION DRUG MONITORING REPORT IN PATIENT PIEDAD: Not Applicable Instructions: Peptic Ulcer, [id number], Gastritis, Adult, [id number], Atherosclerosis, Hypertension, Adult, [id number] Referrals: Jason Chamberlain MD [Primary Care Provider] - Additional Instructions: You need to follow up with your family doctor in the next 5-7 days due to findings on CT scan in the ER robbin Recommended referrals in care include: 1. Urology--bladder wall thickening, need to have cystoscopy for further evaluation 2. Gastroenterology--gastritis/peptic ulcer disease, need to have upper en doscopy for further evaluation 3. Vascular Surgeon--noted to have severe narrowing of left common iliac artery I have started medication for your stomach called Protonix (pantoprazole)--take daily as prescribed Avoid any alcohol to include beer as it will further irritate/aggrevate you stomach (gastritis/peptic ulcer disease) Stop smoking--this affects all areas of your health to include findings in your stomach, urinary bladder, and blood vessels as noted in today's ER visit Sepsis Event Note (ED) - Evaluation Sepsis Screening Result: No Definite Risk - Focused Exam Vital Signs: Vital Signs Temp Pulse Resp BP Pulse Ox 01/09/21 19:34 96.6 F L 76 18 151/79 H 98 01/09/21 19:25 76 18 151/79 H 98 01/09/21 19:01 96.6 F L 80 20 147/90 H 100 - My Orders Last 24 Hours: My Active Orders 01/09/21 19:12 Peripheral IV Care [RC] . DIRECTED Sodium Chloride 0.9% [Saline Flush] 10 ml FLUSH ASDIRECTED PRN Peripheral IV Insertion Adult [OM.PC] Routine 01/09/21 19:13 Abdomen Pelvis w Cont [CT] Stat 01/09/21 19:45 Iopamidol [Isovue-300 (61%)] 100 ml IV . DIRECTED Sodium Chloride 0.9% [Normal Saline] 100 ml IV ASDIRECTED - Assessment/Plan Last 24 Hours: My Active Orders 01/09/21 19:12 Peripheral IV Care [RC] . DIRECTED Sodium Chloride 0.9% [Saline Flush] 10 ml FLUSH ASDIRECTED PRN Peripheral IV Insertion Adult [OM.PC] Routine 01/09/21 19:13 Abdomen Pelvis w Cont [CT] Stat 01/09/21 19:45 Iopamidol [Isovue-300 (61%)] 100 ml IV . DIRECTED Sodium Chloride 0.9% [Normal Saline] 100 ml IV ASDIRECTED
[2021-01-09] MEDS ORDERED: Pantoprazole 40 MG Vial IVPUSH ONE (20:45)
[2021-01-09 21:00] VITALS: BP 192/104; PULSE 77
== END 2021-01-09 21:10 | disposition home or self-care (01) ==
LOC: JP.ED 18:40
DX: K29.70 Gastritis, unspecified, without bleeding (principal); K27.9 Peptic ulcer, site unspecified, unspecified as acute or chronic, without hemorrhage or perforation; J44.9 Chronic obstructive pulmonary disease, unspecified; R23.4 Changes in skin texture; I10 Essential (primary) hypertension; Z79.82 Long term (current) use of aspirin; Z72.0 Tobacco use; Z79.899 Other long term (current) drug therapy
CPT/HCPCS: 74177; 96374; 99284; C9113

== ENCOUNTER 2021-02-03 14:20 | Emergency (ER) | payer MEDICAID ==
[2021-02-03] MEDS ORDERED: Albuterol/Ipratropium 3.0-0.5 MG/3 ML Neb Soln NEB ONE (15:34)
[2021-02-03] MEDS ORDERED: methylPREDNISolone Sodium Succinate 125 MG/2 ML SDV IVPUSH ONE (15:37)
--- NOTE | 2021-02-03 15:41 | EDM.PDOC ---
ED HPI GENERAL MEDICAL PROBLEM - General Chief Complaint: Respiratory Problem Stated Complaint: SOB, RESPIRATORY SYMPTOMS Time Seen by Provider: 02/03/21 15:15 Source of Information: Reports: Patient History Limitations: Reports: No Limitations - History of Present Illness INITIAL COMMENTS - FREE TEXT/NARRATIVE: 60-year-old male with known COPD, has been treated in the past for COPD exacerbations has been having more shortness of breath and cough for the past 1 to 2 weeks. His ability to walk and be active at work is becoming more diminished. He just took his last dose of Zithromax which was provided by his primary provider, it really did not change anything. He continues to smoke. He does not have a fever, cough is mildly productive which is chronic, he is due for his second Covid vaccination tomorrow. I saw him for a very similar flareup 1 to 2 years ago at this time of the year and he responded well to prednisone. Onset: Gradual Duration: Week(s): Associated Symptoms: Reports: Cough, Malaise, Shortness of Breath, Weakness. Denies: Chest Pain, Fever/Chills, Headaches - Related Data Allergies Allergy/AdvReac Type Severity Reaction Status Date / Time No Known Allergies Allergy Verified 02/03/21 14:56 Home Meds: Home Meds Aspirin 325 mg PO DAILY 07/26/15 [History] Albuterol [Ventolin HFA] 2 puff INH ASDIRECTED 07/13/16 [History] Acetaminophen with Codeine [Tylenol with Codeine #3 Tablet] 1 tab PO ASDIRECTED PRN 07/11/18 [History] Fluticasone Propionate [Flovent HFA 110 MCG] 1 puff INH BID 7 Days #1 puff 02/03/21 [Rx] Pantoprazole Sodium [Protonix] 40 mg PO BEDTIME 02/03/21 [History] Past Medical History HEENT History: Reports: Impaired Vision Cardiovascular History: Reports: Hypertension Respiratory History: Reports: COPD, SOB Gastrointestinal History: Reports: Chronic Constipation, GERD Other Gastrointestinal History: abd pain for 2 weeks pt guarding L lower abd area Genitourinary History: Reports: Retention, Urinary Musculoskeletal History: Reports: Back Pain, Chronic, Other (See Below) Other Musculoskeletal History: Degenerative Disc Disease Hematologic History: Reports: Anticoagulation Therapy Dermatologic History: Reports: Other (See Below) Other Dermatologic History: dry skin - Infectious Disease History Infectious Disease History: Reports: Chicken Pox, Shingles - Past Surgical History Head Surgeries/Procedures: Reports: None HEENT Surgical History: Reports: Tonsillectomy Cardiovascular Surgical History: Reports: None Respiratory Surgical History: Reports: None GI Surgical History: Reports: Appendectomy Male Surgical History: Reports: None Musculoskeletal Surgical History: Reports: None Dermatological Surgical History: Reports: None Social & Family History - Tobacco Use Tobacco Use Status *Q: Current Every Day Tobacco User Years of Tobacco use: 40 Packs/Tins Daily: 0.1 - Caffeine Use Caffeine Use: Reports: Coffee Caffeine Use Comment: 3-4 cups of coffee per day, daily soda - Recreational Drug Use Recreational Drug Use: No ED ROS GENERAL - Review of Systems Review Of Systems: See Below Constitutional: Reports: Malaise. Denies: Fever, Chills HEENT: Denies: Throat Pain Respiratory: Reports: Shortness of Breath, Wheezing, Cough, Sputum Cardiovascular: Denies: Chest Pain, Palpitations GI/Abdominal: Reports: Abdominal Pain (Evaluated for abdominal pain last month, diagnosed with gastritis). Denies: Nausea, Vomiting Skin: Reports: No Symptoms Neurological: Denies: Dizziness, Headache Psychiatric: Reports: No Symptoms ED EXAM, GENERAL - Physical Exam Exam: See Below Exam Limited By: No Limitations General Appearance: Alert, No Apparent Distress (Looks uncomfortable but not distressed) Head: Atraumatic Respiratory/Chest: Lungs Clear (Lungs are clear but he has diffusely decreased breath sounds bilaterally) Cardiovascular: Regular Rate, Rhythm, Tachycardia (Very mild tachycardia, no ectopy) GI/Abdominal: Non-Tender Extremities: Normal Inspection Course - Vital Signs Last Recorded V/S: Last Vital Signs Temp 98.1 F 02/03/21 15:01 Pulse 72 02/03/21 15:21 Resp 28 H 02/03/21 15:01 BP 148/79 H 02/03/21 15:21 Pulse Ox 91 L 02/03/21 15:21 - Orders/Labs/Meds Orders: Active Orders 24 hr Category Date Time Status Chest 2V [CR] Routine Exams 02/03/21 15:37 Taken Meds: Medications Discontinued Medications Generic Name Dose Route Start Last Admin Trade Name Freq PRN Reason Stop Dose Admin Albuterol/Ipratropium 3 ml 02/03/21 15:34 02/03/21 15:49 Albuterol/Ipratropium 3.0-0.5 Mg/3 Ml Neb Soln NEB 02/03/21 15:35 3 ml ONETIME ONE Administration Methylprednisolone Sodium Succinate 125 mg 02/03/21 15:37 02/03/21 15:49 Methylprednisolone Sodium Succinate 125 Mg/2 Ml Sdv IVPUSH 02/03/21 15:38 125 mg ONETIME ONE Administration - Re-Assessments/Exams Free Text/Narrative Re-Assessment/Exam: 02/03/21 15:42 Patient was given a DuoNeb, a lock started and the patient will be given 125 mg of Solu-Medrol IV followed by a two-view chest x-ray. He likely will need another course of steroids. 02/03/21 16:04 Patient felt better after DuoNeb, 2 view chest x-ray actually looks fairly normal. No infiltrates or acute findings. Going to place the patient on 60 mg of prednisone daily for 4 days, then 40 mg daily for an additional 3 days. Encouraged him to decrease his smoking if possible and can return anytime if worsening despite treatment. 02/03/21 19:12 I also called in Flovent inhaler to start twice daily. Departure - Departure Time of Disposition: 16:31 Disposition: Home, Self-Care 01 Clinical Impression: COPD exacerbation - Discharge Information Prescriptions: Fluticasone Propionate [Flovent HFA 110 MCG] 1 puff INH BID 7 Days #1 puff Instructions: Chronic Obstructive Pulmonary Disease Exacerbation Referrals: Jason Chamberlain MD [Primary Care Provider] - Forms: ED Department Discharge Care Plan Goals: Take 3 pills of prednisone with your morning meal for the next 4 days starting tomorrow morning, then 2 pills for 3 additional days. Take a puff off of the steroid inhaler twice daily and recheck with Dr. Chamberlain in the next 1 to 2 weeks to discuss long-term treatment. Return to the emergency room if worsening despite treatment. Sepsis Event Note (ED) - Evaluation Sepsis Screening Result: No Definite Risk - Focused Exam Vital Signs: Vital Signs Temp Pulse Resp BP Pulse Ox 02/03/21 15:21 72 148/79 H 91 L 02/03/21 15:01 98.1 F 102 H 28 H 177/76 H 95 02/03/21 14:56 98.1 F 102 H 28 H 177/76 H 95 - My Orders Last 24 Hours: My Active Orders 02/03/21 15:37 Chest 2V [CR] Routine - Assessment/Plan Last 24 Hours: My Active Orders 02/03/21 15:37 Chest 2V [CR] Routine
[2021-02-03 16:05] VITALS: BP 148/79; PULSE 72
--- NOTE | 2021-02-04 09:53 | CR ---
CHEST: 2 view CLINICAL HISTORY:Dyspnea COMPARISON:2018 FINDINGS: The heart size, pulmonary vascularity and hilar structures are normal. No infiltrate effusion or pneumothorax is seen. There are atherosclerotic changes in the aorta. IMPRESSION: No acute cardiopulmonary process.
== END 2021-02-03 16:30 | disposition home or self-care (01) ==
LOC: JP.ED 14:20
DX: J44.1 Chronic obstructive pulmonary disease with (acute) exacerbation (principal); I10 Essential (primary) hypertension; K21.9 Gastro-esophageal reflux disease without esophagitis; Z79.82 Long term (current) use of aspirin; Z79.899 Other long term (current) drug therapy; Z72.0 Tobacco use
CPT/HCPCS: 71046; 94640; 96374; 99285; J2930; J7620-GY

== ENCOUNTER 2021-03-12 05:33 | Day surgery (SDC) | payer MEDICAID ==
[2021-03-12] MEDS ORDERED: Dextrose 5%-Lactated Ringers 1,000 ML IV SCH (06:00)
[2021-03-12] MEDS ORDERED: Glycopyrrolate 0.2 MG/ML 2 ML SDV IVPUSH ONE (06:00)
[2021-03-12] MEDS ORDERED: Albuterol/Ipratropium 3.0-0.5 MG/3 ML Neb Soln NEB ONE (06:20)
[2021-03-12] MEDS ORDERED: fentaNYL 100 MCG/2 ML SDV ONE (06:57)
[2021-03-12] MEDS ORDERED: Propofol 200 MG/20 ML SDV ONE (06:57)
[2021-03-12] MEDS ORDERED: Midazolam 1 MG/ML 2 ML SDV ONE (06:57)
[2021-03-12] MEDS ORDERED: Pantoprazole 40 MG Vial IVPUSH ONE (07:29)
[2021-03-12 08:36] VITALS: BP 127/82; PULSE 102
--- NOTE | 2021-03-12 09:08 | CR ---
CHEST: 2 view CLINICAL HISTORY:Diminished breath sounds left side COMPARISON:02/03/2021 FINDINGS: The heart size, pulmonary vascularity and hilar structures are normal. No infiltrate effusion or pneumothorax is seen. IMPRESSION: No acute cardiopulmonary process.
--- NOTE | 2021-03-20 14:06 | OR ---
DATE OF PROCEDURE: 03/12/2021 SURGEON: Eduar Sung MD PREOPERATIVE DIAGNOSIS: Epigastric discomfort. POSTOPERATIVE DIAGNOSIS: Epigastric discomfort associated with [id number] gastritis involving body and antrum with small scattered antral erosions. OPERATIVE PROCEDURE: Esophagogastroduodenoscopy with antral biopsies for CLOtest. ANESTHESIA: IV sedation. INDICATION FOR PROCEDURE: A 61-year-old male presenting with some ongoing epigastric discomfort, to be somewhat to the right of the midline. In the past, he had been on some Protonix in which he reports some improvement in his symptoms. He has now been on Pepcid a.c., but it helped only intermittently. The plan is to proceed with an upper GI endoscopy with biopsies as indicated. Potential risks including bleeding and perforation were discussed, and the patient wishes to proceed. DETAILS OF PROCEDURE: The patient was taken to the operating room and placed in a left lateral decubitus position. IV sedation was administered, after which the upper GI endoscope was passed orally through the length of the esophagus into the stomach with retroflexion view of the fundus, and thereafter through the pyloric channel and into the proximal duodenum. Findings included normal hypopharynx, larynx, upper esophageal sphincter, and esophageal body. At the EG junction, no significant hiatal hernia was noted. Upon entering the stomach, he did have some [id number] gastritis beginning in the body and then extending into the antrum. Within the antrum, there were few scattered erosions with some scant amount of coffee-ground type material present. No active bleeding was seen. Pyloric channel was widely opened and duodenum to the junction of the third and fourth portions was unremarkable. At this point, biopsies were obtained from the antrum and sent for CLOtest for H pylori. Minimal bleeding from the biopsy sites was seen, and the procedure then concluded. The patient will be given Protonix 40 mg IV in the recovery room and then begin Protonix 40 mg daily. He will be following up with Dr. Chamberlain in 2 to 3 weeks. Should the patient's symptoms not improve significantly on the Protonix, one may consider additional studies such CT scan of abdomen and pelvis and/or CCK-stimulated HIDA scan. One additional issue in this case was that he was noted to have some diminished breath sounds on the left-side. Chest x-ray was obtained, which showed no acute or significant chronic cardiopulmonary process. Eduar Sung MD /[id number]
== END 2021-03-12 08:38 | disposition home or self-care (01) ==
LOC: JP.SDS 05:33
PROVIDERS: ATTEND Surgery
DX: K29.70 Gastritis, unspecified, without bleeding (principal); K25.9 Gastric ulcer, unspecified as acute or chronic, without hemorrhage or perforation; F17.200 Nicotine dependence, unspecified, uncomplicated; J44.9 Chronic obstructive pulmonary disease, unspecified; E66.9 Obesity, unspecified; Z68.26 Body mass index [BMI] 26.0-26.9, adult
CPT/HCPCS: 43239; 71046; 87081; 94640; C9113; J2250; J2704; J3010; J3490; J7121; J7620-GY

== ENCOUNTER 2021-08-31 14:59 | Emergency (ER) | payer MEDICAID ==
[2021-08-31 15:52] VITALS: BP 165/86; PULSE 101
--- NOTE | 2021-08-31 17:29 | EDM.PDOC ---
ED HPI GENERAL MEDICAL PROBLEM - General Chief Complaint: Lower Extremity Injury/Pain Stated Complaint: RT HEEL PAIN Time Seen by Provider: 08/31/21 16:55 Source of Information: Reports: Patient History Limitations: Reports: No Limitations - History of Present Illness INITIAL COMMENTS - FREE TEXT/NARRATIVE: 61-year-old male who has been having right heel pain for the past 1 to 2 months, especially in the morning, came out of this local store and took a step and had a sudden very sharp increase in pain in the arch of his foot near the heel. No swelling or bruising. No specific injury. It was so uncomfortable he thought he should come in and have it checked. Onset: Gradual (Gradual worsening of pain over the past 2 months, sudden increase in pain today) Location: Reports: Other (Right plantar area of the foot) Quality: Reports: Sharp, Other (Much worse with weightbearing or trying to walk) - Related Data Allergies Allergy/AdvReac Type Severity Reaction Status Date / Time No Known Allergies Allergy Verified 03/12/21 06:08 Home Meds: Home Meds Aspirin 325 mg PO DAILY 07/26/15 [History] Albuterol [Ventolin HFA] 2 puff INH ASDIRECTED 07/13/16 [History] Acetaminophen with Codeine [Tylenol with Codeine #3 Tablet] 1 tab PO ASDIRECTED PRN 07/11/18 [History] Fluticasone Propionate [Flovent HFA 110 MCG] 1 puff INH BID 7 Days #1 puff 02/03/21 [Rx] Past Medical History HEENT History: Reports: Impaired Vision Cardiovascular History: Reports: Hypertension Respiratory History: Reports: COPD, SOB Gastrointestinal History: Reports: Chronic Constipation, GERD Other Gastrointestinal History: abd pain for 2 weeks pt guarding L lower abd area Genitourinary History: Reports: Retention, Urinary Musculoskeletal History: Reports: Back Pain, Chronic, Other (See Below) Other Musculoskeletal History: Degenerative Disc Disease Hematologic History: Reports: Anticoagulation Therapy Dermatologic History: Reports: Other (See Below) Other Dermatologic History: dry skin - Infectious Disease History Infectious Disease History: Reports: Chicken Pox, Shingles - Past Surgical History Head Surgeries/Procedures: Reports: None HEENT Surgical History: Reports: Tonsillectomy Cardiovascular Surgical History: Reports: None Respiratory Surgical History: Reports: None GI Surgical History: Reports: Appendectomy Male Surgical History: Reports: None Musculoskeletal Surgical History: Reports: None Dermatological Surgical History: Reports: None Social & Family History - Family History Family Medical History: Unobtainable - Tobacco Use Tobacco Use Status *Q: Current Every Day Tobacco User Years of Tobacco use: 40 Packs/Tins Daily: 1 - Caffeine Use Caffeine Use: Reports: Coffee Caffeine Use Comment: 3-4 cups of coffee per day, daily soda - Recreational Drug Use Recreational Drug Use: No Review of Systems - Review of Systems Review Of Systems: See Below Constitutional: Denies: Fever Respiratory: Reports: No Symptoms Cardiovascular: Reports: No Symptoms Genitourinary: Reports: No Symptoms Musculoskeletal: Reports: Other (See HPI) Skin: Denies: Bruising, Erythema Neurological: Denies: Paresthesia Psychiatric: Reports: No Symptoms ED EXAM, GENERAL - Physical Exam Exam: See Below Exam Limited By: No Limitations General Appearance: Alert, No Apparent Distress Head: Atraumatic Respiratory/Chest: No Respiratory Distress Cardiovascular: Regular Rate, Rhythm Extremities: Other (Exam of the right foot reveals no tenderness around the ankle or arch of the foot. He does have some pain with deep palpation of the center of the calcaneus. There is no swelling, bruising or erythema) Neurological: Alert, Oriented Psychiatric: Normal Affect, Normal Mood Skin Exam: Warm, Dry Course - Vital Signs Last Recorded V/S: Last Vital Signs Temp 97.7 F 08/31/21 16:05 Pulse 101 H 08/31/21 16:05 Resp 16 08/31/21 16:05 BP 165/86 H 08/31/21 16:05 Pulse Ox 97 08/31/21 16:05 - Orders/Labs/Meds Orders: Active Orders 24 hr Category Date Time Status Calcaneous Rt [CR] Stat Exams 08/31/21 16:52 Taken - Re-Assessments/Exams Free Text/Narrative Re-Assessment/Exam: 09/01/21 01:50 X-ray of the right foot shows a spur on the calcaneus but no bony lesion, significant arthritis or fracture. Patient was encouraged to take an anti- inflammatory at for the next 48 hours, and will see Dr. Perez on Thursday to assess his plantar fascia. Departure - Departure Time of Disposition: 18:03 Disposition: Home, Self-Care 01 Clinical Impression: Pain of right heel - Discharge Information Instructions: Foot Pain Referrals: Jason Chamberlain MD [Primary Care Provider] - Forms: ED Department Discharge Care Plan Goals: Use your cane, and consider a regular dose of ibuprofen for 2 or 3 days. Elevate the foot when able, and you should be getting a call from Dr. Tate at the clinic to talk about an appointment time to see him on Thursday. Otherwise continue your regular medications. Sepsis Event Note (ED) - Focused Exam Vital Signs: Vital Signs Temp Pulse Resp BP Pulse Ox 08/31/21 16:05 97.7 F 101 H 16 165/86 H 97 08/31/21 15:51 97.7 F 101 H 16 165/86 H 97 - My Orders Last 24 Hours: My Active Orders 08/31/21 16:52 Calcaneous Rt [CR] Stat - Assessment/Plan Last 24 Hours: My Active Orders 08/31/21 16:52 Calcaneous Rt [CR] Stat
--- NOTE | 2021-09-02 09:26 | CR ---
Calcaneous Rt CLINICAL HISTORY: Pain COMPARISON: None FINDINGS: Bone alignment is anatomic. Bone mineralization is adequate. No acute fracture identified. Surrounding soft tissues are intact. There is a calcaneal spur. IMPRESSION: No acute process. Calcaneal spur
== END 2021-08-31 18:04 | disposition home or self-care (01) ==
LOC: JP.ED 14:59
DX: M25.571 Pain in right ankle and joints of right foot (principal); I10 Essential (primary) hypertension; J44.9 Chronic obstructive pulmonary disease, unspecified; Z79.82 Long term (current) use of aspirin; Z72.0 Tobacco use
CPT/HCPCS: 73650-26-RT; 73650-RT; 99283

== ENCOUNTER 2021-11-30 03:29 | Emergency (ER) | payer MEDICAID ==
[2021-11-30 04:18] VITALS: BP 135/73; PULSE 79
[2021-11-30] MEDS ORDERED: Iopamidol 755 Mg/ML 100 ML Bottle IV STA (04:45)
[2021-11-30] MEDS ORDERED: Sodium Chloride 0.9% 75 ML IV STA (04:46)
== END 2021-11-30 05:59 | disposition home or self-care (01) ==
LOC: JP.ED 03:29
DX: R07.89 Other chest pain (principal); J44.9 Chronic obstructive pulmonary disease, unspecified; F17.210 Nicotine dependence, cigarettes, uncomplicated; I10 Essential (primary) hypertension; K21.9 Gastro-esophageal reflux disease without esophagitis; Z79.899 Other long term (current) drug therapy; Z79.82 Long term (current) use of aspirin
CPT/HCPCS: 36415; 71046; 71046-26; 71275; 80053; 84484; 85025; 85379; 86140; 93005; 93010; 99283; 99285-25; J3490; Q9967

== ENCOUNTER 2022-10-18 22:23 | Emergency (ER) | payer MEDICAID ==
[2022-10-18 22:39] VITALS: BP 162/85; PULSE 96
[2022-10-18] MEDS ORDERED: Albuterol/Ipratropium 3.0-0.5 MG/3 ML Neb Soln NEB ONE (23:34)
[2022-10-18] MEDS ORDERED: methylPREDNISolone Sodium Succinate 125 MG/2 ML SDV IVPUSH ONE (23:34)
== END 2022-10-19 00:31 | disposition home or self-care (01) ==
LOC: JP.ED 22:23
DX: J44.1 Chronic obstructive pulmonary disease with (acute) exacerbation (principal); J20.8 Acute bronchitis due to other specified organisms; I10 Essential (primary) hypertension; K21.9 Gastro-esophageal reflux disease without esophagitis; F17.210 Nicotine dependence, cigarettes, uncomplicated; Z79.82 Long term (current) use of aspirin; Z79.899 Other long term (current) drug therapy
CPT/HCPCS: 71046; 94640; 96374; 99285; J2930; J7620

== ENCOUNTER 2023-04-10 21:43 | Emergency (ER) | payer MEDICAID ==
[2023-04-10 22:02] VITALS: BP 158/85; PULSE 82
[2023-04-10] MEDS ORDERED: Ketorolac 30 MG/ML SDV IM ONE (22:26)
== END 2023-04-10 22:54 | disposition home or self-care (01) ==
LOC: JP.ED 21:43
DX: M54.50 Low back pain, unspecified (principal); G89.29 Other chronic pain; J44.9 Chronic obstructive pulmonary disease, unspecified; I10 Essential (primary) hypertension; F17.210 Nicotine dependence, cigarettes, uncomplicated; Z88.6 Allergy status to analgesic agent; Z88.8 Allergy status to other drugs, medicaments and biological substances
CPT/HCPCS: 96372; 99283; J1885

== ENCOUNTER 2023-07-09 22:13 | Emergency (ER) | payer MEDICAID ==
[2023-07-09 22:35] VITALS: BP 152/76; PULSE 87
== END 2023-07-09 23:25 | disposition home or self-care (01) ==
LOC: JP.ED 22:13
DX: I73.9 Peripheral vascular disease, unspecified (principal); J44.9 Chronic obstructive pulmonary disease, unspecified; R60.0 Localized edema; R73.03 Prediabetes; F17.210 Nicotine dependence, cigarettes, uncomplicated; I10 Essential (primary) hypertension; Z79.01 Long term (current) use of anticoagulants; Z90.49 Acquired absence of other specified parts of digestive tract; Z79.82 Long term (current) use of aspirin; Z79.899 Other long term (current) drug therapy
CPT/HCPCS: 99283

== ENCOUNTER 2024-08-06 17:10 | Emergency (ER) | payer MEDICAID ==
[2024-08-06 17:48] VITALS: BP 166/93; PULSE 98
[2024-08-06] MEDS ORDERED: Naloxone 0.4 MG/ML SDV IVPUSH PRN ×2 (18:02→19:10)
[2024-08-06 18:15] LABS: BASOPHILS ABSOLUTE AUTO 0.03 K/uL (0.00-0.10); BASOPHILS PERCENT AUTO 0.3 % (0.1-1.3); EOSINOPHILS ABSOLUTE AUTO 0.06 K/uL (0.00-0.40); EOSINOPHILS PERCENT AUTO 0.5 % (0.0-5.4); HEMATOCRIT 39.5 % (38.4-49.7); HEMOGLOBIN 12.5 g/dL (12.9-16.9); IMMATURE GRAN ABSOLUTE AUTO 0.05 K/uL (0.00-0.23); IMMATURE GRAN PERCENT AUTO 0.5 % (0.0-0.7); LYMPHOCYTES ABSOLUTE AUTO 1.01 K/uL (0.8-3.3); LYMPHOCYTES PERCENT AUTO 9.2 % (11.4-47.7); MEAN CORPUSCULAR HGB CONC 31.6 g/dL (31.6-35.5); MEAN CORPUSCULAR VOLUME 91.6 fL (81.4-99.0); MONOCYTES ABSOLUTE AUTO 1.11 K/uL (0.20-0.90); MONOCYTES PERCENT AUTO 10.1 % (3.3-12.6); NEUTROPHILS PERCENT AUTO 79.4 % (40.0-78.1); PLATELET COUNT,PLT 264 K/uL (130-375); RED BLOOD CELL COUNT 4.31 M/uL (4.14-5.76)
[2024-08-06] MEDS: Ondansetron 4 MG/2 ML SDV IVPUSH ONE (18:28)
[2024-08-06] MEDS: Sodium Chloride 0.9% 10 ML Syringe FLUSH PRN (18:30)
[2024-08-06] MEDS: HYDROmorphone 0.5 MG/0.5 ML Syringe IVPUSH ONE ×2 (18:30→19:41)
[2024-08-06 18:36] LABS: A/G RATIO 0.9 (1.2-2.2); ALANINE AMINOTRANSFERASE,ALT 19 U/L (12-78); ALBUMIN 3.5 g/dL (3.4-5.0); ALKALINE PHOSPHATASE 120 U/L (46-116); ASPARTATE AMNIOTRANSFERASE,AST 20 U/L (15-37); BILIRUBIN TOTAL 0.3 mg/dL (0.2-1.0); BLOOD UREA NITROGEN,BUN 7 mg/dL (7-18); C-REACTIVE PROTEIN 1.51 mg/dL (<0.50); CALCIUM 9.4 mg/dL (8.5-10.1); CARBON DIOXIDE,CO2 23 mmol/L (21-32); CHLORIDE,CL 98 mmol/L (100-108); CREATININE 0.7 mg/dL (0.8-1.3); EST CRCL DRUG DOSING (CG) 92.74 mL/min; ESTIMATED GFR 103 mL/min (>60); GLUCOSE RANDOM 131 mg/dL (74-106); POTASSIUM,K 4.1 mmol/L (3.6-5.2); PROTEIN TOTAL,TP 7.5 g/dL (6.4-8.2); SODIUM,NA 135 mmol/L (140-148)
[2024-08-06 18:40] LABS: ANION GAP 18.1 mmol/L (5.0-14.0)
[2024-08-06] MEDS: Gabapentin 100 MG Cap PO ONE (19:40)
== END 2024-08-06 19:52 | disposition home or self-care (01) ==
LOC: JP.ED 17:10
DX: I73.9 Peripheral vascular disease, unspecified (principal); L98.499 Non-pressure chronic ulcer of skin of other sites with unspecified severity; I10 Essential (primary) hypertension; J44.9 Chronic obstructive pulmonary disease, unspecified; Z79.82 Long term (current) use of aspirin; Z79.899 Other long term (current) drug therapy; Z90.49 Acquired absence of other specified parts of digestive tract
CPT/HCPCS: 36415; 73630; 80053; 84550; 85025; 86140; 96374; 96375; 96376; 99283; A9270; J1171; J2405; 99284

== ENCOUNTER 2024-08-20 11:46 | Emergency (ER) | payer MEDICAID ==
[2024-08-20 13:11] LABS: BASOPHILS ABSOLUTE AUTO 0.06 K/uL (0.00-0.10); BASOPHILS PERCENT AUTO 0.6 % (0.1-1.3); EOSINOPHILS ABSOLUTE AUTO 0.22 K/uL (0.00-0.40); EOSINOPHILS PERCENT AUTO 2.1 % (0.0-5.4); HEMATOCRIT 36.7 % (38.4-49.7); HEMOGLOBIN 11.8 g/dL (12.9-16.9); IMMATURE GRAN ABSOLUTE AUTO 0.06 K/uL (0.00-0.23); IMMATURE GRAN PERCENT AUTO 0.6 % (0.0-0.7); LYMPHOCYTES ABSOLUTE AUTO 1.29 K/uL (0.8-3.3); LYMPHOCYTES PERCENT AUTO 12.4 % (11.4-47.7); MEAN CORPUSCULAR HEMOGLOBIN 28.7 pg (31.6-35.5); MEAN CORPUSCULAR HGB CONC 32.2 g/dL (31.6-35.5); MEAN CORPUSCULAR VOLUME 89.3 fL (81.4-99.0); MONOCYTES ABSOLUTE AUTO 1.32 K/uL (0.20-0.90); MONOCYTES PERCENT AUTO 12.7 % (3.3-12.6); NEUTROPHILS ABSOLUTE AUTO 7.43 K/uL (1.0-7.6); NEUTROPHILS PERCENT AUTO 71.6 % (40.0-78.1); PLATELET COUNT,PLT 328 K/uL (130-375); RED BLOOD CELL COUNT 4.11 M/uL (4.14-5.76); WHITE BLOOD CELL COUNT,WBC 10.4 K/uL (3.2-11.0)
[2024-08-20 13:28] LABS: CALCIUM 9.1 mg/dL (8.5-10.1); CREATININE 0.8 mg/dL (0.8-1.3); EST CRCL DRUG DOSING (CG) 84.18 mL/min; POTASSIUM,K 4.7 mmol/L (3.6-5.2)
[2024-08-20 13:31] LABS: ANION GAP 15.7 mmol/L (5.0-14.0)
[2024-08-20 14:34] VITALS: BP 156/85; PULSE 99
== END 2024-08-20 14:30 | disposition home or self-care (01) ==
LOC: JP.ED 11:46
DX: I73.9 Peripheral vascular disease, unspecified (principal); M79.674 Pain in right toe(s); I10 Essential (primary) hypertension; J44.9 Chronic obstructive pulmonary disease, unspecified; F17.210 Nicotine dependence, cigarettes, uncomplicated; Z90.49 Acquired absence of other specified parts of digestive tract; Z79.82 Long term (current) use of aspirin; Z79.51 Long term (current) use of inhaled steroids; Z79.899 Other long term (current) drug therapy
CPT/HCPCS: 36415; 80048; 85025; 86140; 99283

== ENCOUNTER 2024-09-17 13:51 | Inpatient (IN) | payer SELFPAY ==
[2024-09-17 14:09] LABS: BASOPHILS ABSOLUTE AUTO 0.04 K/uL (0.00-0.10); BASOPHILS PERCENT AUTO 0.3 % (0.1-1.3); EOSINOPHILS ABSOLUTE AUTO 0.16 K/uL (0.00-0.40); EOSINOPHILS PERCENT AUTO 1.1 % (0.0-5.4); HEMATOCRIT 36.4 % (38.4-49.7); HEMOGLOBIN 11.8 g/dL (12.9-16.9); IMMATURE GRAN PERCENT AUTO 0.7 % (0.0-0.7); LYMPHOCYTES ABSOLUTE AUTO 1.37 K/uL (0.8-3.3); LYMPHOCYTES PERCENT AUTO 9.8 % (11.4-47.7); MEAN CORPUSCULAR HEMOGLOBIN 28.5 pg (31.6-35.5); MEAN CORPUSCULAR HGB CONC 32.4 g/dL (31.6-35.5); MEAN CORPUSCULAR VOLUME 87.9 fL (81.4-99.0); MONOCYTES ABSOLUTE AUTO 1.53 K/uL (0.20-0.90); MONOCYTES PERCENT AUTO 10.9 % (3.3-12.6); NEUTROPHILS ABSOLUTE AUTO 10.79 K/uL (1.0-7.6); NEUTROPHILS PERCENT AUTO 77.2 % (40.0-78.1); PLATELET COUNT,PLT 332 K/uL (130-375); RED BLOOD CELL COUNT 4.14 M/uL (4.14-5.76)
[2024-09-17] MEDS: Morphine 2 MG/ML SYRINGE IVPUSH ONE ×2 (14:20→15:44)
[2024-09-17 14:34] LABS: A/G RATIO 0.8 (1.2-2.2); ALANINE AMINOTRANSFERASE,ALT 15 U/L (12-78); ALBUMIN 3.2 g/dL (3.4-5.0); ALKALINE PHOSPHATASE 141 U/L (46-116); ASPARTATE AMNIOTRANSFERASE,AST 19 U/L (15-37); BILIRUBIN TOTAL 0.3 mg/dL (0.2-1.0); BLOOD UREA NITROGEN,BUN 10 mg/dL (7-18); CALCIUM 9.5 mg/dL (8.5-10.1); CARBON DIOXIDE,CO2 27 mmol/L (21-32); CHLORIDE,CL 95 mmol/L (100-108); CREATININE 0.7 mg/dL (0.8-1.3); EST CRCL DRUG DOSING (CG) 99.67 mL/min; ESTIMATED GFR 103 mL/min (>60); GLUCOSE RANDOM 130 mg/dL (74-106); POTASSIUM,K 4.1 mmol/L (3.6-5.2); SODIUM,NA 131 mmol/L (140-148); TROPONIN I HIGH SENSITIVITY 15.1 pg/mL (<=60.3)
[2024-09-17 14:36] LABS: ANION GAP 13.1 mmol/L (5.0-14.0)
[2024-09-17] MEDS: Sodium Chloride 0.9% 80 ML IV SCH (14:57)
[2024-09-17] MEDS: Iopamidol 612 MG/ML 100 ML Bottle IV ONE (14:57)
[2024-09-17] MEDS: Sodium Chloride 0.9% 1,000 ML IV ONE ×2 (15:45→16:45)
[2024-09-17] MEDS: Piperacillin/Tazobactam 3.375 GM in Sodium Chloride 0.9% 50 ML IV SCH (15:50)
[2024-09-17 15:59] LABS: LACTIC ACID 1.5 mmol/L (0.4-2.0)
[2024-09-17] MEDS ORDERED: Propofol 200 MG/20 ML SDV ONE (16:53)
[2024-09-17] MEDS ORDERED: Neostigmine Methylsulfate 10 MG/10 ML MDV ONE (16:53)
[2024-09-17] MEDS ORDERED: Dexamethasone 4 MG/ML SDV ONE (16:53)
[2024-09-17] MEDS ORDERED: Rocuronium 50 MG/5 ML Vial ONE (16:53)
[2024-09-17] MEDS ORDERED: Glycopyrrolate 0.2 MG/ML 5 ML MDV ONE (16:53)
[2024-09-17] MEDS ORDERED: Ondansetron 4 MG/2 ML SDV ONE (16:53)
[2024-09-17] MEDS ORDERED: Succinylcholine 200 MG/10 ML MDV ONE (16:53)
[2024-09-17] MEDS ORDERED: fentaNYL 250 MCG/5 ML SDV ONE (16:54)
[2024-09-17 16:57] LABS: APPEARANCE,URINE CLEAR (CLEAR); BILIRUBIN,URINE NEGATIVE (NEGATIVE); COLOR,URINE YELLOW (YELLOW); GLUCOSE,URINE NEGATIVE (NEGATIVE); KETONES,URINE NEGATIVE (NEGATIVE); LEUKOCYTE ESTERASE,URINE NEGATIVE (NEGATIVE); NITRITE,URINE NEGATIVE (NEGATIVE); OCCULT BLOOD,URINE NEGATIVE (NEGATIVE); PH,URINE 5.5 (5.0-8.0); PROTEIN,URINE NEGATIVE (NEGATIVE); UROBILINOGEN,URINE 0.2 EU/dL (0.2-1.0)
[2024-09-17] MEDS: Albuterol/Ipratropium 3.0-0.5 MG/3 ML Neb Soln NEB ONE (16:58)
[2024-09-17 17:09] LABS: AMORPHOUS SEDIMENT,URINE NOT SEEN; BACTERIA,URINE NOT SEEN; EPITHELIAL CELLS,URINE RARE; MUCUS,URINE RARE; RBC,URINE 0-5 (0-5); WBC,URINE 0-5 (0-5)
[2024-09-17 17:10] LABS: AMPHETAMINES SCREEN, URINE NEGATIVE (NEGATIVE); BARBITURATE SCREEN,URINE NEGATIVE (NEGATIVE); BENZODIAZEPINES SCREEN,URINE NEGATIVE (NEGATIVE); METHADONE SCREEN, URINE NEGATIVE (NEGATIVE); METHAMPHETAMINES SCREEN, URINE NEGATIVE (NEGATIVE); OXYCODONE SCREEN,URINE NEGATIVE (NEGATIVE); PROPOXYPHENE SCREEN,URINE NEGATIVE (NEGATIVE); THC SCREEN,URINE 50 NG/ML NEGATIVE (NEGATIVE)
[2024-09-17] MEDS: Bupivacaine 0.25%/EPINEPHrine 1:200,000 30 ML SDV ONE (18:19)
[2024-09-17] MEDS ORDERED: Lactated Ringers 1,000 ML ONE (19:01)
[2024-09-17] MEDS ORDERED: Sodium Chloride 0.9% 500 ML ONE (19:01)
[2024-09-17] MEDS ORDERED: Sugammadex Sodium 200 MG/2 ML VIAL IV ONE (19:02)
[2024-09-17] MEDS ORDERED: Naloxone 0.4 MG/ML SDV IVPUSH PRN (20:10)
[2024-09-17] MEDS: Ketorolac 15 MG/ML SDV IM SCH (20:33)
[2024-09-17] MEDS: Acetaminophen 325 MG Tab PO SCH (20:42)
[2024-09-17] MEDS: Lactated Ringers 1,000 ML IV SCH (21:00)
[2024-09-17] MEDS: Pantoprazole 80 MG in Sodium Chloride 0.9% 100 ML IV SCH (21:02)
[2024-09-17] MEDS: Piperacillin/Tazobactam 4.5 GM in Sodium Chloride 0.9% 100 ML IV SCH (21:07)
[2024-09-17] MEDS: HYDROmorphone 0.5 MG/0.5 ML Syringe IVPUSH ONE (21:08)
[2024-09-17] MEDS: Ketorolac 15 MG/ML SDV IVPUSH SCH (21:18)
[2024-09-18] MEDS: Benzocaine/Cetylpyridinium/Menthol Lozenge MUCMEM PRN (04:01)
[2024-09-18 05:24] LABS: BASOPHILS PERCENT AUTO 0.2 % (0.1-1.3); HEMATOCRIT 35.7 % (38.4-49.7); HEMOGLOBIN 11.9 g/dL (12.9-16.9); IMMATURE GRAN ABSOLUTE AUTO 0.05 K/uL (0.00-0.23); IMMATURE GRAN PERCENT AUTO 0.9 % (0.0-0.7); LYMPHOCYTES ABSOLUTE AUTO 0.27 K/uL (0.8-3.3); LYMPHOCYTES PERCENT AUTO 4.9 % (11.4-47.7); MEAN CORPUSCULAR HEMOGLOBIN 28.7 pg (31.6-35.5); MEAN CORPUSCULAR HGB CONC 33.3 g/dL (31.6-35.5); MONOCYTES ABSOLUTE AUTO 0.58 K/uL (0.20-0.90); MONOCYTES PERCENT AUTO 10.4 % (3.3-12.6); NEUTROPHILS ABSOLUTE AUTO 4.65 K/uL (1.0-7.6); NEUTROPHILS PERCENT AUTO 83.6 % (40.0-78.1); PLATELET COUNT,PLT 286 K/uL (130-375); RED BLOOD CELL COUNT 4.15 M/uL (4.14-5.76); WHITE BLOOD CELL COUNT,WBC 5.6 K/uL (3.2-11.0)
[2024-09-18 05:27] LABS: BASOPHILS ABSOLUTE AUTO 0.01 K/uL (0.00-0.10)
[2024-09-18 05:44] LABS: A/G RATIO 0.7 (1.2-2.2); ALANINE AMINOTRANSFERASE,ALT 65 U/L (12-78); ALBUMIN 2.2 g/dL (3.4-5.0); ALKALINE PHOSPHATASE 79 U/L (46-116); ANION GAP 13.2 mmol/L (5.0-14.0); ASPARTATE AMNIOTRANSFERASE,AST 65 U/L (15-37); BILIRUBIN TOTAL 0.5 mg/dL (0.2-1.0); BLOOD UREA NITROGEN,BUN 6 mg/dL (7-18); CALCIUM 8.2 mg/dL (8.5-10.1); CARBON DIOXIDE,CO2 25 mmol/L (21-32); CHLORIDE,CL 97 mmol/L (100-108); CREATININE 0.7 mg/dL (0.8-1.3); EST CRCL DRUG DOSING (CG) 99.43 mL/min; ESTIMATED GFR 103 mL/min (>60); GLUCOSE RANDOM 140 mg/dL (74-106); POTASSIUM,K 4.2 mmol/L (3.6-5.2); PROTEIN TOTAL,TP 5.6 g/dL (6.4-8.2); SODIUM,NA 131 mmol/L (140-148)
[2024-09-18] MEDS: Sucralfate 1 GM Tab PO SCH (08:12)
[2024-09-18] MEDS: Phenol/Sodium Phenolate Spray 180 ML Bottle MUCMEM PRN (13:13)
[2024-09-18] MEDS: Heparin Sodium 5,000 Units/ML Vial SUBCUT SCH (14:25)
[2024-09-18] MEDS: Piperacillin/Tazobactam/Dext 4.5 GM in Premix Bag 1 BAG IV SCH (14:29)
[2024-09-18] MEDS: HYDROmorphone 0.5 MG/0.5 ML Syringe IVPUSH PRN (16:02)
[2024-09-18] MEDS: Ondansetron 4 MG/2 ML SDV IVPUSH PRN (16:02)
[2024-09-19 06:09] LABS: BASOPHILS PERCENT AUTO 0.1 % (0.1-1.3); HEMATOCRIT 31.1 % (38.4-49.7); IMMATURE GRAN ABSOLUTE AUTO 0.25 K/uL (0.00-0.23); IMMATURE GRAN PERCENT AUTO 1.4 % (0.0-0.7); LYMPHOCYTES PERCENT AUTO 2.9 % (11.4-47.7); MEAN CORPUSCULAR HEMOGLOBIN 28.2 pg (31.6-35.5); MEAN CORPUSCULAR HGB CONC 32.2 g/dL (31.6-35.5); MEAN CORPUSCULAR VOLUME 87.6 fL (81.4-99.0); MONOCYTES ABSOLUTE AUTO 1.79 K/uL (0.20-0.90); MONOCYTES PERCENT AUTO 10.3 % (3.3-12.6); NEUTROPHILS PERCENT AUTO 85.3 % (40.0-78.1); PLATELET COUNT,PLT 286 K/uL (130-375); RED BLOOD CELL COUNT 3.55 M/uL (4.14-5.76); WHITE BLOOD CELL COUNT,WBC 17.5 K/uL (3.2-11.0)
[2024-09-19 06:16] LABS: BASOPHILS ABSOLUTE AUTO 0.02 K/uL (0.00-0.10)
[2024-09-19 06:29] LABS: CALCIUM 8.7 mg/dL (8.5-10.1); CREATININE 0.9 mg/dL (0.8-1.3); EST CRCL DRUG DOSING (CG) 77.33 mL/min; POTASSIUM,K 3.7 mmol/L (3.6-5.2)
[2024-09-19 06:37] LABS: ANION GAP 11.7 mmol/L (5.0-14.0)
[2024-09-19] MEDS: Acetaminophen Soln 650 MG/20.3 ML UD Cup PO SCH (14:12)
[2024-09-19] MEDS: Furosemide 20 MG/2 ML VIAL IVPUSH ONE (14:41)
[2024-09-19] MEDS: Lactated Ringers 1,000 ML IV SCH (14:44)
[2024-09-20 05:47] LABS: BASOPHILS PERCENT AUTO 0.1 % (0.1-1.3); HEMATOCRIT 31.8 % (38.4-49.7); HEMOGLOBIN 10.3 g/dL (12.9-16.9); IMMATURE GRAN ABSOLUTE AUTO 0.23 K/uL (0.00-0.23); IMMATURE GRAN PERCENT AUTO 1.2 % (0.0-0.7); LYMPHOCYTES ABSOLUTE AUTO 0.76 K/uL (0.8-3.3); LYMPHOCYTES PERCENT AUTO 3.9 % (11.4-47.7); MEAN CORPUSCULAR HEMOGLOBIN 28.1 pg (31.6-35.5); MEAN CORPUSCULAR HGB CONC 32.4 g/dL (31.6-35.5); MEAN CORPUSCULAR VOLUME 86.9 fL (81.4-99.0); MONOCYTES ABSOLUTE AUTO 1.59 K/uL (0.20-0.90); MONOCYTES PERCENT AUTO 8.3 % (3.3-12.6); NEUTROPHILS ABSOLUTE AUTO 16.65 K/uL (1.0-7.6); NEUTROPHILS PERCENT AUTO 86.5 % (40.0-78.1); PLATELET COUNT,PLT 275 K/uL (130-375); RED BLOOD CELL COUNT 3.66 M/uL (4.14-5.76); WHITE BLOOD CELL COUNT,WBC 19.3 K/uL (3.2-11.0)
[2024-09-20 05:48] LABS: BASOPHILS ABSOLUTE AUTO 0.02 K/uL (0.00-0.10)
[2024-09-20 06:08] LABS: CALCIUM 8.7 mg/dL (8.5-10.1); CREATININE 0.7 mg/dL (0.8-1.3); EST CRCL DRUG DOSING (CG) 99.43 mL/min; POTASSIUM,K 3.1 mmol/L (3.6-5.2)
[2024-09-20 06:11] LABS: ANION GAP 13.1 mmol/L (5.0-14.0)
[2024-09-20] MEDS: Magnesium Hydroxide 400 MG/5 ML Susp 30 ML Cup PO ONE (13:59)
[2024-09-20] MEDS ORDERED: Potassium Chloride 20 MEQ in Premix Bag 1 BAG IV SCH (16:00)
[2024-09-20] MEDS: Potassium Chloride 10 MEQ in Premix Bag 1 BAG IV SCH (16:30)
[2024-09-21 05:54] LABS: BASOPHILS PERCENT AUTO 0.1 % (0.1-1.3); EOSINOPHILS ABSOLUTE AUTO 0.03 K/uL (0.00-0.40); EOSINOPHILS PERCENT AUTO 0.2 % (0.0-5.4); HEMATOCRIT 30.1 % (38.4-49.7); HEMOGLOBIN 9.6 g/dL (12.9-16.9); IMMATURE GRAN PERCENT AUTO 0.6 % (0.0-0.7); LYMPHOCYTES ABSOLUTE AUTO 0.96 K/uL (0.8-3.3); LYMPHOCYTES PERCENT AUTO 6.1 % (11.4-47.7); MEAN CORPUSCULAR HEMOGLOBIN 28.1 pg (31.6-35.5); MEAN CORPUSCULAR HGB CONC 31.9 g/dL (31.6-35.5); MONOCYTES ABSOLUTE AUTO 1.24 K/uL (0.20-0.90); MONOCYTES PERCENT AUTO 7.9 % (3.3-12.6); NEUTROPHILS PERCENT AUTO 85.1 % (40.0-78.1); PLATELET COUNT,PLT 218 K/uL (130-375); RED BLOOD CELL COUNT 3.42 M/uL (4.14-5.76); WHITE BLOOD CELL COUNT,WBC 15.8 K/uL (3.2-11.0)
[2024-09-21 05:59] LABS: BASOPHILS ABSOLUTE AUTO 0.02 K/uL (0.00-0.10)
[2024-09-21 06:01] LABS: CALCIUM 8.5 mg/dL (8.5-10.1); CREATININE 0.8 mg/dL (0.8-1.3)
[2024-09-21 06:19] LABS: ANION GAP 12.8 mmol/L (5.0-14.0); POTASSIUM,K 2.8 mmol/L (3.6-5.2)
[2024-09-21] MEDS ORDERED: Potassium Chloride 10 MEQ in Premix Bag 1 BAG IV SCH (06:30)
[2024-09-21] MEDS: Potassium Chloride 10 MEQ in Premix Bag 1 BAG IV SCH ×3 (07:37→20:56)
[2024-09-21] MEDS: Pantoprazole 40 MG Vial IVPUSH SCH (09:13)
[2024-09-21] MEDS: Magnesium Hydroxide 400 MG/5 ML Susp 30 ML Cup PO ONE (09:13)
[2024-09-21] MEDS: Potassium Chloride 20 MEQ Tab.ER PO ONE (12:57)
[2024-09-21 17:13] LABS: ANION GAP 13.1 mmol/L (5.0-14.0); CALCIUM 8.4 mg/dL (8.5-10.1); CREATININE 0.7 mg/dL (0.8-1.3); EST CRCL DRUG DOSING (CG) 99.43 mL/min; POTASSIUM,K 3.1 mmol/L (3.6-5.2)
[2024-09-22 01:34] LABS: ALBUMIN 2.1 g/dL (3.4-5.0); BLOOD UREA NITROGEN,BUN 8 mg/dL (7-18); CALCIUM 8.3 mg/dL (8.5-10.1); CARBON DIOXIDE,CO2 26 mmol/L (21-32); CHLORIDE,CL 98 mmol/L (100-108); CREATININE 0.7 mg/dL (0.8-1.3); EST CRCL DRUG DOSING (CG) 99.43 mL/min; ESTIMATED GFR 103 mL/min (>60); GLUCOSE RANDOM 103 mg/dL (74-106); PHOSPHORUS 2.9 mg/dL (2.5-4.9); POTASSIUM,K 3.6 mmol/L (3.6-5.2); SODIUM,NA 135 mmol/L (140-148)
[2024-09-22 01:35] LABS: ANION GAP 14.6 mmol/L (5.0-14.0)
[2024-09-22] MEDS ORDERED: Potassium Chloride 10 MEQ in Premix Bag 1 BAG IV SCH (09:00)
[2024-09-22] MEDS: SODIUM CHLORIDE 0.9% IV SCH (09:37)
[2024-09-22] MEDS: POTASSIUM CHLORIDE IV SCH (09:37)
[2024-09-22] MEDS: Lactated Ringers 1,000 ML IV SCH (09:47)
[2024-09-22 10:51] LABS: BASOPHILS ABSOLUTE AUTO 0.02 K/uL (0.00-0.10); BASOPHILS PERCENT AUTO 0.2 % (0.1-1.3); EOSINOPHILS ABSOLUTE AUTO 0.07 K/uL (0.00-0.40); EOSINOPHILS PERCENT AUTO 0.6 % (0.0-5.4); HEMATOCRIT 30.4 % (38.4-49.7); HEMOGLOBIN 9.6 g/dL (12.9-16.9); IMMATURE GRAN ABSOLUTE AUTO 0.09 K/uL (0.00-0.23); IMMATURE GRAN PERCENT AUTO 0.8 % (0.0-0.7); LYMPHOCYTES PERCENT AUTO 7.9 % (11.4-47.7); MEAN CORPUSCULAR HEMOGLOBIN 27.7 pg (31.6-35.5); MEAN CORPUSCULAR HGB CONC 31.6 g/dL (31.6-35.5); MEAN CORPUSCULAR VOLUME 87.9 fL (81.4-99.0); MONOCYTES ABSOLUTE AUTO 1.75 K/uL (0.20-0.90); MONOCYTES PERCENT AUTO 15.4 % (3.3-12.6); NEUTROPHILS PERCENT AUTO 75.1 % (40.0-78.1); PLATELET COUNT,PLT 265 K/uL (130-375); RED BLOOD CELL COUNT 3.46 M/uL (4.14-5.76); WHITE BLOOD CELL COUNT,WBC 11.3 K/uL (3.2-11.0)
[2024-09-22 11:06] LABS: CALCIUM 8.2 mg/dL (8.5-10.1); CREATININE 0.8 mg/dL (0.8-1.3); POTASSIUM,K 3.3 mmol/L (3.6-5.2)
[2024-09-22 11:07] LABS: ANION GAP 14.3 mmol/L (5.0-14.0)
[2024-09-22] MEDS: Furosemide 40 MG/4 ML VIAL IVPUSH ONE (15:12)
[2024-09-22] MEDS: Potassium Chloride 20 MEQ Tab.ER PO SCH (15:43)
[2024-09-22] MEDS: Triamcinolone Acetonide 0.1% Crm 15 GM Tube TOP SCH (21:13)
[2024-09-23 05:26] LABS: BASOPHILS ABSOLUTE AUTO 0.05 K/uL (0.00-0.10); BASOPHILS PERCENT AUTO 0.4 % (0.1-1.3); EOSINOPHILS ABSOLUTE AUTO 0.15 K/uL (0.00-0.40); EOSINOPHILS PERCENT AUTO 1.1 % (0.0-5.4); HEMATOCRIT 31.8 % (38.4-49.7); HEMOGLOBIN 10.4 g/dL (12.9-16.9); IMMATURE GRAN PERCENT AUTO 1.4 % (0.0-0.7); LYMPHOCYTES ABSOLUTE AUTO 1.03 K/uL (0.8-3.3); LYMPHOCYTES PERCENT AUTO 7.2 % (11.4-47.7); MEAN CORPUSCULAR HEMOGLOBIN 28.5 pg (31.6-35.5); MEAN CORPUSCULAR HGB CONC 32.7 g/dL (31.6-35.5); MEAN CORPUSCULAR VOLUME 87.1 fL (81.4-99.0); MONOCYTES PERCENT AUTO 14.7 % (3.3-12.6); NEUTROPHILS ABSOLUTE AUTO 10.71 K/uL (1.0-7.6); NEUTROPHILS PERCENT AUTO 75.2 % (40.0-78.1); PLATELET COUNT,PLT 306 K/uL (130-375); RED BLOOD CELL COUNT 3.65 M/uL (4.14-5.76); WHITE BLOOD CELL COUNT,WBC 14.2 K/uL (3.2-11.0)
[2024-09-23 05:48] LABS: CALCIUM 8.3 mg/dL (8.5-10.1); CREATININE 0.8 mg/dL (0.8-1.3); POTASSIUM,K 3.7 mmol/L (3.6-5.2)
[2024-09-23 06:04] LABS: ANION GAP 12.7 mmol/L (5.0-14.0)
[2024-09-23] MEDS: Bisacodyl 10 MG Supp RECTAL PRN (09:47)
[2024-09-23] MEDS: Furosemide 40 MG/4 ML VIAL IVPUSH ONE (10:28)
[2024-09-23] MEDS: Amoxicillin/Clavulanate K 875-125 MG Tab PO SCH ×2 (13:26→21:32)
[2024-09-23] MEDS: Pantoprazole 40 MG Tab.CR PO SCH (15:55)
[2024-09-23] MEDS: Magnesium Hydroxide 400 MG/5 ML Susp 30 ML Cup PO ONE (15:55)
[2024-09-24] MEDS: LORazepam 0.5 MG Tab PO PRN (02:59)
[2024-09-24] MEDS: Furosemide 20 MG/2 ML VIAL IVPUSH ONE (02:59)
[2024-09-24] MEDS: oxyCODONE 5 MG Tab PO PRN (03:05)
[2024-09-24 05:22] LABS: BASOPHILS ABSOLUTE AUTO 0.04 K/uL (0.00-0.10); BASOPHILS PERCENT AUTO 0.3 % (0.1-1.3); EOSINOPHILS ABSOLUTE AUTO 0.12 K/uL (0.00-0.40); EOSINOPHILS PERCENT AUTO 0.8 % (0.0-5.4); HEMATOCRIT 33.4 % (38.4-49.7); HEMOGLOBIN 10.7 g/dL (12.9-16.9); IMMATURE GRAN ABSOLUTE AUTO 0.35 K/uL (0.00-0.23); IMMATURE GRAN PERCENT AUTO 2.4 % (0.0-0.7); LYMPHOCYTES ABSOLUTE AUTO 0.85 K/uL (0.8-3.3); LYMPHOCYTES PERCENT AUTO 5.7 % (11.4-47.7); MEAN CORPUSCULAR HEMOGLOBIN 28.2 pg (31.6-35.5); MEAN CORPUSCULAR VOLUME 87.9 fL (81.4-99.0); MONOCYTES ABSOLUTE AUTO 1.45 K/uL (0.20-0.90); MONOCYTES PERCENT AUTO 9.7 % (3.3-12.6); NEUTROPHILS ABSOLUTE AUTO 12.07 K/uL (1.0-7.6); NEUTROPHILS PERCENT AUTO 81.1 % (40.0-78.1); PLATELET COUNT,PLT 333 K/uL (130-375); WHITE BLOOD CELL COUNT,WBC 14.9 K/uL (3.2-11.0)
[2024-09-24 05:39] LABS: CALCIUM 8.6 mg/dL (8.5-10.1); CREATININE 0.7 mg/dL (0.8-1.3); EST CRCL DRUG DOSING (CG) 99.43 mL/min; POTASSIUM,K 3.9 mmol/L (3.6-5.2)
[2024-09-24 05:46] LABS: ANION GAP 12.9 mmol/L (5.0-14.0)
[2024-09-24] MEDS: Magnesium Hydroxide 400 MG/5 ML Susp 30 ML Cup PO ONE (08:13)
[2024-09-24] MEDS: Potassium Chloride 10% 20 MEQ/15 ML Soln 15 ML UD Cup PO SCH (20:12)
[2024-09-24] MEDS ORDERED: Amoxicillin/Clavulanate K 400-57 MG/5 ML Susp 100 ML Bottle PO SCH (21:00)
[2024-09-26 09:08] LABS: BASOPHILS ABSOLUTE AUTO 0.05 K/uL (0.00-0.10); BASOPHILS PERCENT AUTO 0.4 % (0.1-1.3); EOSINOPHILS ABSOLUTE AUTO 0.21 K/uL (0.00-0.40); EOSINOPHILS PERCENT AUTO 1.9 % (0.0-5.4); HEMATOCRIT 35.4 % (38.4-49.7); HEMOGLOBIN 11.2 g/dL (12.9-16.9); IMMATURE GRAN ABSOLUTE AUTO 0.19 K/uL (0.00-0.23); IMMATURE GRAN PERCENT AUTO 1.7 % (0.0-0.7); LYMPHOCYTES ABSOLUTE AUTO 1.06 K/uL (0.8-3.3); LYMPHOCYTES PERCENT AUTO 9.5 % (11.4-47.7); MEAN CORPUSCULAR HEMOGLOBIN 27.9 pg (31.6-35.5); MEAN CORPUSCULAR HGB CONC 31.6 g/dL (31.6-35.5); MEAN CORPUSCULAR VOLUME 88.3 fL (81.4-99.0); MONOCYTES ABSOLUTE AUTO 0.94 K/uL (0.20-0.90); MONOCYTES PERCENT AUTO 8.4 % (3.3-12.6); NEUTROPHILS ABSOLUTE AUTO 8.69 K/uL (1.0-7.6); NEUTROPHILS PERCENT AUTO 78.1 % (40.0-78.1); PLATELET COUNT,PLT 444 K/uL (130-375); RED BLOOD CELL COUNT 4.01 M/uL (4.14-5.76); WHITE BLOOD CELL COUNT,WBC 11.1 K/uL (3.2-11.0)
[2024-09-26 09:36] LABS: CALCIUM 9.1 mg/dL (8.5-10.1); CREATININE 0.9 mg/dL (0.8-1.3); EST CRCL DRUG DOSING (CG) 77.33 mL/min; POTASSIUM,K 4.5 mmol/L (3.6-5.2)
[2024-09-26 09:38] LABS: ANION GAP 16.5 mmol/L (5.0-14.0)
[2024-09-26 11:11] VITALS: BP 162/88; PULSE 92
== END 2024-09-26 13:30 | disposition home or self-care (01) | DRG 327 ==
LOC: JP.ED 13:51 → JP.SDS 16:25 → JP.ICU 19:49 → JP.MS 09-18 12:37 → JP.2SS 09-25 09:38
PROVIDERS: ADMIT Surgery; ATTEND Surgery
PROC: 0DQ74ZZ Repair Stomach, Pylorus, Percutaneous Endoscopic Approach (ICD-10-PCS; principal; 2024-09-17 17:15)
DX: K25.1 Acute gastric ulcer with perforation (principal); E87.1 Hypo-osmolality and hyponatremia; I25.10 Atherosclerotic heart disease of native coronary artery without angina pectoris; F10.90 Alcohol use, unspecified, uncomplicated; F17.210 Nicotine dependence, cigarettes, uncomplicated; H54.7 Unspecified visual loss; I10 Essential (primary) hypertension; J44.9 Chronic obstructive pulmonary disease, unspecified; K59.09 Other constipation; K21.9 Gastro-esophageal reflux disease without esophagitis; M54.9 Dorsalgia, unspecified; G89.29 Other chronic pain; N40.0 Benign prostatic hyperplasia without lower urinary tract symptoms; E87.6 Hypokalemia; E83.42 Hypomagnesemia; I73.9 Peripheral vascular disease, unspecified; D64.9 Anemia, unspecified; Z95.5 Presence of coronary angioplasty implant and graft; Z79.82 Long term (current) use of aspirin; Z79.51 Long term (current) use of inhaled steroids; Z79.899 Other long term (current) drug therapy; Z87.81 Personal history of (healed) traumatic fracture; Z86.16 Personal history of COVID-19; Z90.89 Acquired absence of other organs; Z90.49 Acquired absence of other specified parts of digestive tract; Z98.890 Other specified postprocedural states; Z95.828 Presence of other vascular implants and grafts
CPT/HCPCS: 00790-QZ; 36415; 36620; 70450; 71045; 71045-26; 71260; 73030-26-LT; 73030-LT; 74177; 80048; 80053; 80069; 80305-QW; 80307; 81001; 83605; 83690; 83735; 84132; 84484; 85025; 93005; 93010; 94640; 96361; 96365; 96375; 96376; 97116-GP; 97161-GP; 97530-GP; 99231; 99232; 99285; 99285-25; A9270-GY; J0330; J1100; J1596; J1644; J1885; J1940; J2270; J2405; J2470; J2543; J2704; J2710; J3010; J3360; J3480; J3490; J7030; J7040; J7120; J7620; Q9967

== ENCOUNTER 2024-12-16 12:50 | Emergency (ER) | payer MEDICAID ==
[2024-12-16 13:55] VITALS: BP 134/70; PULSE 107
[2024-12-16 14:48] LABS: BASOPHILS ABSOLUTE AUTO 0.06 K/uL (0.00-0.10); BASOPHILS PERCENT AUTO 0.6 % (0.1-1.3); EOSINOPHILS ABSOLUTE AUTO 0.23 K/uL (0.00-0.40); EOSINOPHILS PERCENT AUTO 2.1 % (0.0-5.4); HEMATOCRIT 35.3 % (38.4-49.7); HEMOGLOBIN 10.8 g/dL (12.9-16.9); IMMATURE GRAN ABSOLUTE AUTO 0.05 K/uL (0.00-0.23); IMMATURE GRAN PERCENT AUTO 0.5 % (0.0-0.7); LYMPHOCYTES ABSOLUTE AUTO 1.48 K/uL (0.8-3.3); LYMPHOCYTES PERCENT AUTO 13.8 % (11.4-47.7); MEAN CORPUSCULAR HEMOGLOBIN 26.5 pg (31.6-35.5); MEAN CORPUSCULAR HGB CONC 30.6 g/dL (31.6-35.5); MEAN CORPUSCULAR VOLUME 86.5 fL (81.4-99.0); MONOCYTES ABSOLUTE AUTO 1.04 K/uL (0.20-0.90); MONOCYTES PERCENT AUTO 9.7 % (3.3-12.6); NEUTROPHILS ABSOLUTE AUTO 7.89 K/uL (1.0-7.6); NEUTROPHILS PERCENT AUTO 73.3 % (40.0-78.1); PLATELET COUNT,PLT 308 K/uL (130-375); RED BLOOD CELL COUNT 4.08 M/uL (4.14-5.76); WHITE BLOOD CELL COUNT,WBC 10.8 K/uL (3.2-11.0)
[2024-12-16] MEDS: Morphine 4 MG/ML Syringe IVPUSH ONE (14:52)
[2024-12-16 15:08] LABS: A/G RATIO 0.8 (1.2-2.2); ALANINE AMINOTRANSFERASE,ALT 18 U/L (12-78); ALBUMIN 3.3 g/dL (3.4-5.0); ALKALINE PHOSPHATASE 129 U/L (46-116); ANION GAP 16.1 mmol/L (5.0-14.0); ASPARTATE AMNIOTRANSFERASE,AST 13 U/L (15-37); BILIRUBIN TOTAL 0.2 mg/dL (0.2-1.0); BLOOD UREA NITROGEN,BUN 7 mg/dL (7-18); CALCIUM 9.6 mg/dL (8.5-10.1); CARBON DIOXIDE,CO2 24 mmol/L (21-32); CHLORIDE,CL 96 mmol/L (100-108); CREATININE 0.8 mg/dL (0.8-1.3); EST CRCL DRUG DOSING (CG) 84.18 mL/min; ESTIMATED GFR 99 mL/min (>60); GLUCOSE RANDOM 129 mg/dL (74-106); POTASSIUM,K 4.1 mmol/L (3.6-5.2); PROTEIN TOTAL,TP 7.4 g/dL (6.4-8.2); SODIUM,NA 132 mmol/L (140-148)
[2024-12-16] MEDS: HYDROmorphone 0.5 MG/0.5 ML Syringe IVPUSH ONE (15:38)
== END 2024-12-16 15:51 ==
LOC: JP.ED 12:50
DX: S81.801A Unspecified open wound, right lower leg, initial encounter (principal); I73.9 Peripheral vascular disease, unspecified; I10 Essential (primary) hypertension; J44.9 Chronic obstructive pulmonary disease, unspecified; F17.210 Nicotine dependence, cigarettes, uncomplicated; Z79.51 Long term (current) use of inhaled steroids; Z79.899 Other long term (current) drug therapy; Z79.82 Long term (current) use of aspirin; Z79.02 Long term (current) use of antithrombotics/antiplatelets; Z95.5 Presence of coronary angioplasty implant and graft; Z86.16 Personal history of COVID-19; X58.XXXA Exposure to other specified factors, initial encounter
CPT/HCPCS: 36415; 80053; 85025; 96374; 96375; 99284; J2270